=== PATIENT | female | born 1965 | race Two or more races ===

== ENCOUNTER 2016-10-06 21:55 | Observation (INO) | payer OTHER ==
[2016-10-06 22:12] VITALS: BMI 30.8
[2016-10-06] MEDS ORDERED: SODIUM CHLORIDE 1,000 ML IV STA (23:40)
[2016-10-06] MEDS ORDERED: ONDANSETRON 4 MG/2 ML VIAL IVPB ONE (23:40)
[2016-10-06] MEDS ORDERED: morphine CARPU-JECT 4 MG/1 ML DISP.SYRIN IVPUSH ONE (23:40)
[2016-10-06] MEDS ORDERED: ONDANSETRON 4 MG/2 ML VIAL ONE (23:58)
[2016-10-06] MEDS ORDERED: morphine CARPU-JECT 2 MG/1 ML DISP.SYRIN ONE (23:58)
[2016-10-07 00:22] LABS: BASOPHIL 0.9 % (0-2.0); EOSINOPHIL 1.6 % (0-4.5); MCHC 31.3 g/dl (32.0-36.0); MEAN CELL VOLUME 61.3 fl (80-96); MEAN PLT VOLUME 9.6 fl (7.5-11.1); NEUTROPHILS 69.3 % (42.8-82.8); PLATELET COUNT 282 K/MM3 (134-434); RDW 15.5 % (11.6-15.6); WHITE BLOOD COUNT 10.4 K/mm3 (4.0-10.0)
[2016-10-07 00:23] LABS: MCH 19.2 pg (25.7-33.7)
--- NOTE | 2016-10-07 00:37 | PDOC ---
History of Present Illness - General History Source: Patient Exam Limitations: No Limitations - History of Present Illness Initial Comments: 10/07/16 00:45 The patient is a 51 year old female with significant past medical history of hypertension, hyperlipidemia, asthma, and small bowel obstruction who presents to the ED with worsening epigastric, RLQ, and LLQ pain today. Patient reports having abdominal pain for the past few weeks that worsened today. Her pain is intermittent with associated nausea, but denies vomiting and diarrhea. Patient denies any sick contacts and recent travels. The patient denies fever, chills, cough, SOB, chest pain, and palpitations. Allergies: penicillins Social History: No alcohol, tobacco, or drug use reported. Past Surgical History: PCP: Dr. Opal Griffin GI: Dr. Eliseo Mendieta <Gabrielle Hernandes - Last Filed: 10/07/16 05:16> <Mich White - Last Filed: 10/07/16 05:36> - General Chief Complaint: Pain Stated Complaint: ABD PAIN/ NAUSEA Time Seen by Provider: 10/06/16 22:41 Past History <Gabrielle Hernandes - Last Filed: 10/07/16 05:16> - Past Medical History Asthma: Yes HTN: Yes Hypercholesterolemia: Yes Psychiatric Problems: Yes (ANXIETY.) - Surgical History Abdominal Surgery: Yes - Psycho/Social/Smoking Cessation Hx Anxiety: Yes Suicidal Ideation: No Smoking Status: No Smoking History: Never smoked Number of Cigarettes Smoked Daily: 0 Information on smoking cessation initiated: No Hx Alcohol Use: No Drug/Substance Use Hx: No Substance Use Type: None Hx Substance Use Treatment: No <Mich White - Last Filed: 10/07/16 05:36> - Past Medical History Allergies/Adverse Reactions: Allergies Allergy/AdvReac Type Severity Reaction Status Date / Time Penicillins Allergy Intermediate Swelling Verified 10/06/16 22:08 Home Medications: Ambulatory Orders Albuterol Sulfate [Proair Respiclick] 90 mcg IH PRN PRN 06/24/16 Amlodipine Besylate [Norvasc -] 2.5 mg PO DAILY 06/24/16 Budesonide/Formeterol Fumarate [SYMBICORT 160/4.5mcg -] 1 inh PO DAILY 06/24/16 Omeprazole 20 mg PO DAILY 10/06/16 Review of Systems - Review of Systems Able to Perform ROS?: Yes Comments:: 10/07/16 00:45 +epigastric pain, RLQ and LLQ pain, nausea Absent: fever, chills, diaphoresis, cough, SOB, chest pain, vomiting, and diarrhea <GretaGabrielle - Last Filed: 10/07/16 05:16> *Physical Exam - Vital Signs Last Vital Signs Temp Pulse Resp BP Pulse Ox 98.3 F 83 14 151/98 98 10/06/16 22:09 10/06/16 22:09 10/06/16 22:09 10/06/16 22:09 10/06/16 22:09 - Physical Exam Comments: 10/07/16 00:45 GENERAL: Well-appearing, well-nourished. No apparent distress. HEENT: Normocephalic, atraumatic. PERRL, EOM intact. CARDIOVASCULAR: Normal S1, S2. Regular rate and rhythm. PULMONARY: Clear to auscultation bilaterally. ABDOMEN: Soft, non-distended, tenderness to palpation in epigastric, RLQ, and LLQ region. No rebound and guarding. EXTREMITIES: Normal ROM in all four extremities. No gross deformities. SKIN: Warm, dry. No rash NEUROLOGICAL: No focal neurological deficits. <Gabrielle Hernandes - Last Filed: 10/07/16 05:16> - Vital Signs Last Vital Signs Temp Pulse Resp BP Pulse Ox 98.3 F 83 14 151/98 98 10/06/16 22:09 10/06/16 22:09 10/06/16 22:09 10/06/16 22:09 10/06/16 22:09 <Mich White - Last Filed: 10/07/16 05:36> Heart Score/ECG Review - ECG Impressions Comment:: 10/07/16 05:16 NSR @83bpm Moderate voltage criteria for LVH, may be normal variant Nonspecific ST and T wave abnormality Abnormal ECG <Gabrielle Hernandes - Last Filed: 10/07/16 05:16> ED Treatment Course - LABORATORY CBC & Chemistry Diagram: 10/07/16 00:10 10/07/16 00:10 - ADDITIONAL ORDERS Additional order review: 10/07/16 00:10 RBC 6.04 H MCV 61.3 L MCHC 31.3 L RDW 15.5 MPV 9.6 Neutrophils % 69.3 D Lymphocytes % 23.9 D Monocytes % 4.3 Eosinophils % 1.6 Basophils % 0.9 - RADIOLOGY Radiograph Interpretation: 10/07/16 01:45 EXAM: CT ABDOMEN AND PELVIS WITHOUT CONTRAST Reviewed by Imaging executive consultant: No nephrolithiasis, ureterolithiasis or obstructive uropathy. No bladder calculi. Unremarkable pancreas and gallbladder. Calcified granulomas liver. No bowel obstruction, colitis, free fluid or free air. Normal appendix. - Medications Given in the ED: ED Medications Discontinued Medications Generic Name Dose Route Start Last Admin Trade Name Freq PRN Reason Stop Dose Admin Sodium Chloride 1,000 mls @ 1,000 mls/hr 10/06/16 23:40 10/07/16 00:35 Normal Saline - IV 10/07/16 00:39 1,000 mls/hr ASDIR STA Administration Morphine Sulfate 4 mg 10/06/16 23:40 10/06/16 23:45 Morphine Injection - IVPUSH 10/06/16 23:41 4 mg ONCE ONE Administration Ondansetron HCl 4 mg 10/06/16 23:40 10/06/16 23:45 Zofran Injection IVPB 10/06/16 23:41 4 mg ONCE ONE Administration <Gabrielle Hernandes - Last Filed: 10/07/16 05:16> - LABORATORY CBC & Chemistry Diagram: 10/07/16 00:10 10/07/16 00:10 - ADDITIONAL ORDERS Additional order review: 10/07/16 00:10 RBC 6.04 H MCV 61.3 L MCHC 31.3 L RDW 15.5 MPV 9.6 Neutrophils % 69.3 D Lymphocytes % 23.9 D Monocytes % 4.3 Eosinophils % 1.6 Basophils % 0.9 - RADIOLOGY Radiology Studies Ordered: Category Date Time Status ABDOMEN & PELVIS CT W/O CONTR [CT] Stat CT Scan 10/07/16 00:00 Ordered - Medications Given in the ED: ED Medications Discontinued Medications Generic Name Dose Route Start Last Admin Trade Name Freq PRN Reason Stop Dose Admin Morphine Sulfate 4 mg 10/06/16 23:40 10/06/16 23:45 Morphine Injection - IVPUSH 10/06/16 23:41 4 mg ONCE ONE Administration Ondansetron HCl 4 mg 10/06/16 23:40 10/06/16 23:45 Zofran Injection IVPB 10/06/16 23:41 4 mg ONCE ONE Administration <Mich White - Last Filed: 10/07/16 05:36> *DC/Admit/Observation/Transfer - Attestations Scribe Attestion: 10/07/16 00:46 Documentation prepared by Gabrielle Hernandes, acting as medical coding auditor for Mich White MD <Gabrielle Hernandes - Last Filed: 10/07/16 05:16> - Discharge Dispostion Admit: Yes <Mich White - Last Filed: 10/07/16 05:36> Diagnosis at time of Disposition: Abdominal pain Qualifiers: Abdominal location: unspecified location Qualified Code(s): R10.9 - Unspecified abdominal pain - Discharge Dispostion Condition at time of disposition: Stable - Referrals Referrals: Opal Griffin MD [Primary Care Provider] -
[2016-10-07 01:11] LABS: ALBUMIN 4.2 g/dl (3.4-5.0); ALK PHOS 126 U/L (45-117); ANION GAP 5 (8-16); BILIRUBIN,TOTAL 0.5 mg/dL (0.2-1.0); CALCIUM 9.2 mg/dL (8.5-10.1); CO2 30 mmol/L (21-32); CREATININE 0.8 mg/dL (0.55-1.02); GLUCOSE,RANDOM 102 mg/dL (74-106); SGOT/AST 15 U/L (15-37); SGPT/ALT 23 U/L (12-78)
[2016-10-07] MEDS ORDERED: KETOROLAC TROMETHAMINE 30 MG/1 ML VIAL IVPUSH ONE (02:37)
[2016-10-07 02:56] LABS: PLATELET ESTIMATE ADEQUATE (NORMAL)
[2016-10-07 02:57] LABS: ANISOCYTOSIS 2+; HYPOCHROMIA 1+; MICROCYTOSIS 2+; OVALOCYTES 1+; POLYCHROMASIA 2+; TARGET CELLS FEW
[2016-10-07] MEDS ORDERED: KETOROLAC TROMETHAMINE 30 MG/1 ML VIAL ONE (03:03)
[2016-10-07] MEDS ORDERED: ONDANSETRON 4 MG/2 ML VIAL ONE ×3 (04:41→13:34)
[2016-10-07] MEDS ORDERED: ONDANSETRON 4 MG/2 ML VIAL IVPUSH ONE (04:45)
[2016-10-07] MEDS ORDERED: ONDANSETRON 4 MG/2 ML VIAL IVPB ONE (05:13)
[2016-10-07] MEDS ORDERED: morphine CARPU-JECT 4 MG/1 ML DISP.SYRIN IVPUSH ONE (05:13)
[2016-10-07] MEDS ORDERED: SODIUM CHLORIDE 1,000 ML IV STA (05:29)
--- NOTE | 2016-10-07 05:33 | PN ---
Teaching Attending Note Name of Resident: Mary Jo Gonzalez ATTENDING PHYSICIAN STATEMENT I saw and evaluated the patient. I reviewed the resident's note and discussed the case with the resident. I agree with the resident's findings and plan as documented. SUBJECTIVE: OBJECTIVE: ASSESSMENT AND PLAN:
--- NOTE | 2016-10-07 05:37 | HP ---
CHIEF COMPLAINT: Epigastric Pain and Vomiting PCP: Dr. Opal Griffin HISTORY OF PRESENT ILLNESS: This is a 51 year old woman with a past medical history of Hypertension, Hyperlipidemia, Asthma, Small Bowel Obstruction (02/2015). Who presents to the emergency department with epigastric pain radiating to RLQ, LLQ, nausea, and vomiting x 4weeks. Patient is Portuguese speaking [employer] line used #[id number], Patient reports the pain as throbbing, worse now and when drinking cold liquids. Patient reports seeing her GI, 2 weeks ago and was placed on Omeprazole - she reports some relief with med. Patient reports last BM x 1 day, brown and soft. Patient reports a 30lb unintentional weight loss in the last 12 months. Patient denies fever, chills, cough, CP, diarrhea, constipation, dysuria. Patient denies any sick contacts or recent travel. LMP 2 years ago ER course was notable for: (1) CTAP- no bowel obstruction, no free air (2) WBC 10.4 (3) Alk Phos- 126 Recent Travel: None PAST MEDICAL HISTORY: See HPI PAST SURGICAL HISTORY: Caesarean section Social History: Smoking: Never Alcohol: None Drugs: None lives with children- employed Family History: Mother: Asthma, HTN Sister: Gastritis Allergies Penicillins Allergy (Intermediate, Verified 10/06/16 22:08) Swelling HOME MEDICATIONS: Medication Instructions Recorded Albuterol Sulfate [Proair 90 mcg IH PRN PRN 06/24/16 Respiclick] Amlodipine Besylate [Norvasc -] 2.5 mg PO DAILY 06/24/16 Budesonide/Formeterol Fumarate 1 inh PO DAILY 06/24/16 [SYMBICORT 160/4.5mcg -] Omeprazole 20 mg PO DAILY 10/06/16 REVIEW OF SYSTEMS CONSTITUTIONAL: generalized weakness, loss of appetite Absent: fever, chills, diaphoresis, malaise, weight change HEENT: Absent: rhinorrhea, nasal congestion, throat pain, throat swelling, difficulty swallowing, mouth swelling, ear pain, eye pain, visual changes CARDIOVASCULAR: Absent: chest pain, syncope, palpitations, irregular heart rate, lightheadedness , peripheral edema RESPIRATORY: Absent: cough, shortness of breath, dyspnea with exertion, orthopnea, wheezing, stridor, hemoptysis GASTROINTESTINAL: abdominal pain, nausea, vomiting Absent: abdominal distension, diarrhea, constipation, melena, hematochezia GENITOURINARY: Absent: dysuria, frequency, urgency, hesitancy, hematuria, flank pain, genital pain MUSCULOSKELETAL: Absent: myalgia, arthralgia, joint swelling, back pain, neck pain SKIN: Absent: rash, itching, pallor HEMATOLOGIC/IMMUNOLOGIC: Absent: easy bleeding, easy bruising, lymphadenopathy, frequent infections ENDOCRINE: Absent: unexplained weight gain, unexplained weight loss, heat intolerance, cold intolerance NEUROLOGIC: Absent: headache, focal weakness or paresthesias, dizziness, unsteady gait, seizure, mental status changes, bladder or bowel incontinence PSYCHIATRIC: Absent: anxiety, depression, suicidal or homicidal ideation, hallucinations. PHYSICAL EXAMINATION Vital Signs - 24 hr 10/06/16 22:09 Temperature 98.3 F Pulse Rate 83 Respiratory 14 Rate Blood Pressure 151/98 O2 Sat by Pulse 98 Oximetry (%) GENERAL: Awake, alert, and fully oriented, in no acute distress. HEAD: Normal with no signs of trauma. EYES: Pupils equal, round and reactive to light, extraocular movements intact, sclera anicteric, conjunctiva clear. No lid lag. EARS, NOSE, THROAT: Ears normal, nares patent, oropharynx clear without exudates. Moist mucous membranes. NECK: Normal range of motion, supple without lymphadenopathy, JVD, or masses. LUNGS: Breath sounds equal, clear to auscultation bilaterally. No wheezes, and no crackles. No accessory muscle use. HEART: Regular rate and rhythm, normal S1 and S2 without murmur, rub or gallop. ABDOMEN: Soft, obese, +striae, not distended, tender to Epigastrium, RLQ, LLQ, hypoactive bowel sounds, +guarding. No rebound, no masses. No hepatomegaly or splenomegaly. MUSCULOSKELETAL: Normal range of motion at all joints. No bony deformities or tenderness. No CVA tenderness. UPPER EXTREMITIES: 2+ pulses, warm, well-perfused. No cyanosis. No clubbing. Cap refill <2 seconds. No peripheral edema. LOWER EXTREMITIES: 2+ pulses, warm, well-perfused. No calf tenderness. No peripheral edema. NEUROLOGICAL: Cranial nerves II-XII intact. Normal speech. Gait not observed. PSYCHIATRIC: Cooperative. Good eye contact. Appropriate mood and affect. SKIN: Warm, dry, normal turgor, no rashes or lesions noted. Laboratory Results - last 24 hr 10/07/16 10/07/16 00:10 00:10 WBC 10.4 H RBC 6.04 H Hgb 11.6 Hct 37.0 MCV 61.3 L MCHC 31.3 L RDW 15.5 Plt Count 282 MPV 9.6 Neutrophils % 69.3 D Lymphocytes % 23.9 D Monocytes % 4.3 Eosinophils % 1.6 Basophils % 0.9 Platelet Estimate Adequate Polychromasia 2+ Hypochromic-Microcytic 1+ Anisocytosis 2+ Microcytosis 2+ Macrocytosis 1+ Target Cells Few Ovalocytes 1+ Sodium 142 Potassium 4.4 Chloride 107 Carbon Dioxide 30 Anion Gap 5 L BUN 13 D Creatinine 0.8 Creat Clearance w eGFR > 60 Random Glucose 102 Calcium 9.2 Total Bilirubin 0.5 D AST 15 ALT 23 Alkaline Phosphatase 126 H Total Protein 7.0 Albumin 4.2 Lipase 90 Heart Score/ECG Review - ECG Impressions Comment:: 10/07/16 05:16 NSR @83bpm Moderate voltage criteria for LVH, may be normal variant Nonspecific ST and T wave abnormality Abnormal ECG - RADIOLOGY Radiograph Interpretation: 10/07/16 01:45 EXAM: CT ABDOMEN AND PELVIS WITHOUT CONTRAST Reviewed by Imaging production drilling machine operator: No nephrolithiasis, ureterolithiasis or obstructive uropathy. No bladder calculi. Unremarkable pancreas and gallbladder. Calcified granulomas liver. No bowel obstruction, colitis, free fluid or free air. Normal appendix. ASSESSMENT/PLAN: This is a 51 year old woman with a PMHx of: HTN, HLD, SBO. Presents to the ED with epigastric pain, nausea, vomiting x several weeks, worse today. Placed on Observation for Viral Gastroenteritis for further evaluation of their emergent condition. Plan: 1. GI: Abdominal Pain likely due to Viral Gastroenteritis vs GERD vs Pancreatitis vs Cholecystitis vs Malignancy - Slight increase in white count without L-shift, patient is afebrile - CTAP- see above - Will continue IVF - NPO - Zofran. Morphine prn - Pepcid IV - Add on amylase and lipase low suspicion for pancreatitis - Monitor CBC, BMP - UA-pending - Transvaginal US done 10/2015 showed- slightly heterogenous uterus with no evidence of right ovarian torsion or acute pathology - F/U with [facility] in outpatient 2. Card: HTN/HLD - Monitor BP - Continue home meds when patient can tolerate PO 3. Asthma - Controlled - Continue Symbicort 3. F/E/N - NS@75ml/hr - Replete lytes prn - NPO advance to clear ad opal 4. DVT Prophylaxis - OOB - SCDs - Consider AC if LOS > 48 hrs Code Status: Full Code Problem List - Problem (1) Abdominal pain Code(s): R10.9 - UNSPECIFIED ABDOMINAL PAIN Qualifiers: Abdominal location: unspecified location Qualified Code(s): R10.9 - Unspecified abdominal pain (2) Gastritis Code(s): K29.70 - GASTRITIS, UNSPECIFIED, WITHOUT BLEEDING (3) HTN (hypertension) Code(s): I10 - ESSENTIAL (PRIMARY) HYPERTENSION (4) Hypercholesteremia Code(s): E78.0 - PURE HYPERCHOLESTEROLEMIA * DO NOT USE * (5) Asthma Code(s): J45.909 - UNSPECIFIED ASTHMA, UNCOMPLICATED (6) Obesity Code(s): E66.9 - OBESITY, UNSPECIFIED (7) DVT prophylaxis Code(s): ZQP2526 - Visit type - Emergency Visit Emergency Visit: Yes ED Registration Date: 10/07/16 Care time: The patient presented to the Emergency Department on the above date and was hospitalized for further evaluation of their emergent condition. - New Patient This patient is new to me today: Yes Date on this admission: 10/07/16 - Critical Care Critical Care patient: No
[2016-10-07] MEDS ORDERED: ONDANSETRON 4 MG/2 ML VIAL IVPUSH PRN (05:44)
[2016-10-07] MEDS ORDERED: SODIUM CHLORIDE 1,000 ML IV SCH (05:45)
[2016-10-07] MEDS ORDERED: morphine CARPU-JECT 4 MG/1 ML DISP.SYRIN IVPUSH PRN (05:45)
[2016-10-07] MEDS ORDERED: morphine CARPU-JECT 4 MG/1 ML DISP.SYRIN ONE ×3 (06:30→13:51)
[2016-10-07 08:21] VITALS: TEMP 97.5
[2016-10-07 08:42] LABS: URINE APPEARANCE CLEAR; URINE BILIRUBIN NEGATIVE (NEGATIVE); URINE BLOOD NEGATIVE (NEGATIVE); URINE COLOR STRAW; URINE GLUCOSE (UA) NEGATIVE (NEGATIVE); URINE KETONE NEGATIVE (NEGATIVE); URINE NITRITE NEGATIVE (NEGATIVE); URINE PROTEIN NEGATIVE (NEGATIVE); URINE UROBILINOGEN NEGATIVE E.U./dl (0.2-1.0)
[2016-10-07 08:43] LABS: URINE LEUK ESTERASE TRACE (NEGATIVE)
[2016-10-07 08:45] LABS: URINE MUCUS RARE; URINE RBC <1 /hpf (0-3); URINE WBC 1 /hpf (3-5)
[2016-10-07] MEDS ORDERED: FAMOTIDINE 20 MG/50 ML IVPB 50 ML IVPB SCH (10:00)
--- NOTE | 2016-10-07 11:01 | EKG ---
Test Reason : Blood Pressure : / mmHG Vent. Rate : 080 BPM Atrial Rate : 080 BPM P-R Int : 136 ms QRS Dur : 068 ms QT Int : 386 ms P-R-T Axes : 042 -01 016 degrees QTc Int : 445 ms SINUS RHYTHM BASELINE ARTIFACT MODERATE VOLTAGE CRITERIA FOR LVH, MAY BE NORMAL VARIANT NONSPECIFIC ST AND T WAVE ABNORMALITY ABNORMAL ECG WHEN COMPARED WITH ECG OF 24-JUN-2016 16:40, BASELINE ARTIFACT Confirmed by ROBERT ESCOBEDO, USAMA ([id number]) on 10/07/2016 11:01:31 AM Referred By: Confirmed By:USAMA JONES MD
[2016-10-07 11:04] VITALS: BP 109/59; PULSE 71
[2016-10-07] MEDS ORDERED: PANTOPRAZOLE 40 MG TABLET (FP) PO SCH (13:45)
--- NOTE | 2016-10-07 13:47 | MSN ---
Progress Note (SOAP) - Subjective History of Present Illness: Carlos Coats is a 51 y/o female with a pmh of HTN, HLD, asthma, SBO s/p 1 year who presented with a 1 month hx of epigastric pain and a week of nausea. She had one episode of non bloody non billous vomiting as well. I saw the pt this morning and she complains of a throbbing heavy pain in the periumbilical region and in the left lower quadrant. She still has some mild nausea and is in mild distress. She uses an inhaler for her asthma every day but has had no recent SOB. She has stated that she has had palpitations recently but denies any chest pain, cough, f/c, hematochezia, melena, dysuria, hematuria, diarrhea, or constipation. Her last bm was yesterday 10/06. - Current Medications Current Medications: Active Medications Sodium Chloride (Normal Saline -) 1,000 mls @ 75 mls/hr IV ASDIR [facility] Last Admin: 10/07/16 07:05 Dose: 75 mls/hr Famotidine/Sodium Chloride (Pepcid 20 Mg Premixed Ivpb -) 50 mls @ 100 mls/hr IVPB BID [facility] Last Admin: 10/07/16 10:55 Dose: 100 mls/hr Morphine Sulfate (Morphine Injection -) 4 mg IVPUSH Q6H PRN PRN Reason: PAIN Ondansetron HCl (Zofran Injection) 4 mg IVPUSH Q6H PRN PRN Reason: NAUSEA AND/OR VOMITING Pantoprazole Sodium (Protonix -) 40 mg PO BID [facility] - Objective Vital Signs: Vital Signs Temperature 97.5 F L 10/07/16 06:00 Pulse Rate 71 10/07/16 10:55 Respiratory Rate 19 10/07/16 10:55 Blood Pressure 109/59 10/07/16 10:55 O2 Sat by Pulse Oximetry (%) 95 10/07/16 11:18 Constitutional: Yes: Mild Distress, Obese Eyes: Yes: WNL (sclera anicteric) HENT: Yes: WNL Cardiovascular: Yes: Regular Rate and Rhythm, S1, S2 Respiratory: Yes: Regular, CTA Bilaterally Gastrointestinal: Yes: Normal Bowel Sounds, Soft, Abdomen, Obese, Tenderness, Epigastrium (with some tenderness in LLQ as well. Positive guarding. no rebound. neg murphys sign), Vomiting (nbnb) Genitourinary: Yes: WNL (no cva tenderness, no suprapubic tenderness) Musculoskeletal: Yes: Back Pain (slight msk lower back pain. chronic in morning) Peripheral Pulses WNL: Yes Neurological: Yes: Alert, Oriented, Cran Nerves II-XII Intact Labs Lab Results: Laboratory Last Values WBC 10.4 K/mm3 (4.0-10.0) H 10/07/16 00:10 RBC 6.04 M/mm3 (3.60-5.2) H 10/07/16 00:10 Hgb 11.6 GM/dL (10.7-15.3) 10/07/16 00:10 Hct 37.0 % (32.4-45.2) 10/07/16 00:10 MCV 61.3 fl (80-96) L 10/07/16 00:10 MCHC 31.3 g/dl (32.0-36.0) L 10/07/16 00:10 RDW 15.5 % (11.6-15.6) 10/07/16 00:10 Plt Count 282 K/MM3 (134-434) 10/07/16 00:10 MPV 9.6 fl (7.5-11.1) 10/07/16 00:10 Neutrophils % 69.3 % (42.8-82.8) D 10/07/16 00:10 Lymphocytes % 23.9 % (8-40) D 10/07/16 00:10 Monocytes % 4.3 % (3.8-10.2) 10/07/16 00:10 Eosinophils % 1.6 % (0-4.5) 10/07/16 00:10 Basophils % 0.9 % (0-2.0) 10/07/16 00:10 Platelet Estimate Adequate (NORMAL) 10/07/16 00:10 Polychromasia 2+ 10/07/16 00:10 Hypochromic-Microcytic 1+ 10/07/16 00:10 Anisocytosis 2+ 10/07/16 00:10 Microcytosis 2+ 10/07/16 00:10 Macrocytosis 1+ 10/07/16 00:10 Target Cells Few 10/07/16 00:10 Ovalocytes 1+ 10/07/16 00:10 Sodium 142 mmol/L (136-145) 10/07/16 00:10 Potassium 4.4 mmol/L (3.5-5.1) 10/07/16 00:10 Chloride 107 mmol/L (98-107) 10/07/16 00:10 Carbon Dioxide 30 mmol/L (21-32) 10/07/16 00:10 Anion Gap 5 (8-16) L 10/07/16 00:10 BUN 13 mg/dL (7-18) D 10/07/16 00:10 Creatinine 0.8 mg/dL (0.55-1.02) 10/07/16 00:10 Creat Clearance w eGFR > 60 (>60) 10/07/16 00:10 Random Glucose 102 mg/dL (74-106) 10/07/16 00:10 Calcium 9.2 mg/dL (8.5-10.1) 10/07/16 00:10 Total Bilirubin 0.5 mg/dL (0.2-1.0) D 10/07/16 00:10 AST 15 U/L (15-37) 10/07/16 00:10 ALT 23 U/L (12-78) 10/07/16 00:10 Alkaline Phosphatase 126 U/L (45-117) H 10/07/16 00:10 Total Protein 7.0 g/dl (6.4-8.2) 10/07/16 00:10 Albumin 4.2 g/dl (3.4-5.0) 10/07/16 00:10 Total Amylase 38 U/L (25-115) 10/07/16 08:00 Lipase 129 U/L (73-393) 10/07/16 08:00 Urine Color Straw 10/07/16 08:27 Urine Appearance Clear 10/07/16 08:27 Urine pH 7.0 (5.0-8.0) 10/07/16 08:27 Ur Specific [place] 1.010 (1.001-1.035) 10/07/16 08:27 Urine Protein Negative (NEGATIVE) 10/07/16 08:27 Urine Glucose (UA) Negative (NEGATIVE) 10/07/16 08:27 Urine Ketones Negative (NEGATIVE) 10/07/16 08:27 Urine Blood Negative (NEGATIVE) 10/07/16 08:27 Urine Nitrite Negative (NEGATIVE) 10/07/16 08:27 Urine Bilirubin Negative (NEGATIVE) 10/07/16 08: Urine Urobilinogen Negative E.U./dl (0.2-1.0) 10/07/16 08: Ur Leukocyte Esterase Trace (NEGATIVE) H 10/07/16 08:27 Urine RBC <1 /hpf (0-3) 10/07/16 08: Urine WBC 1 /hpf (3-5) 10/07/16 08: Ur Epithelial Cells Rare /hpf (FEW) 10/07/16 08: Urine Mucus Rare 10/07/16 08:27 Imaging - Results Cat Scan: Report Reviewed, Image Reviewed (no acute pathology, no evidence of sbo, colitis, diverticulitis) Assessment/Plan Abdominal pain -viral gastroenteritis vs GERD vs pancreatitis -Slightly elevated white count with ab pain for 1 month, amylase and lipase not elevated make pancreas unlikely -NPO with light iv hydration at 75cc/hr -Was taking omeprazole 20-make it 20 BID -Zofran prn nausea -morphine prn pain -Will need to see dr platt o/p HTN -restart on norvasc 25 Asthma -Continue symbicort daily
--- NOTE | 2016-10-07 15:54 | HOSP ---
Subjective - Review of Symptoms Subjective: c/o nausea and dry heaves. no appetite. denies Cp, SOB,fever, chills Abdomen soft NT/ND obese A/P 1. Viral gastroenteritis vs GERD- CT abdomen reviewed with no acute pathology. will increase PPI to BID dosing. will monitor over next 24H for improvement. will likely benefit from EGD as inpatient vs outpatient pending if clinically improves. will consider Gi consult. IVF, pain and nausea control Physical Examination Vital Signs: Vital Signs Temperature 97.5 F L 10/07/16 06:00 Pulse Rate 71 10/07/16 10:55 Respiratory Rate 19 10/07/16 10:55 Blood Pressure 109/59 10/07/16 10:55 O2 Sat by Pulse Oximetry (%) 95 10/07/16 11:18
--- NOTE | 2016-10-07 16:00 | PN ---
Physical Exam: SUBJECTIVE: Patient seen and examined PAtient resting in bed, in mild distress. afebrile and hemodynamically stable. complains of mild epigastric pain that has gotten a littel better since admission, comlains of persistent nausea and anorexia. no further vomiting. No BM today. Denies chest pain, h/a, sob, palpitations, diarrhea or dysuria. OBJECTIVE: Vital Signs Period Temp Pulse Resp BP Sys/Hill Pulse Ox Last 24 Hr 71 19 109/59 95-95 GENERAL: The patient is awake, alert, and fully oriented, in mild distress HEAD: Normal with no signs of trauma. EYES: PERRL, extraocular movements intact, sclera anicteric, conjunctiva clear. ENT: moist mucous membranes. NECK: supple. LUNGS: Breath sounds equal, clear to auscultation bilaterally HEART: Regular rate and rhythm, S1, S2 ABDOMEN: Soft, moderately tender in epigastric region, nondistended, normoactive bowel sounds, voluntary guarding, no rebound EXTREMITIES: 2+ pulses, warm, well-perfused, no edema. NEUROLOGICAL: Cranial nerves II through XII grossly intact. Normal speech, gait not observed. PSYCH: Normal mood, normal affect. SKIN: Warm, dry Laboratory Results - last 24 hr 10/07/16 10/07/16 10/07/16 08:00 08:00 08:27 Total Amylase 38 Lipase 129 Urine Color Straw Urine Appearance Clear Urine pH 7.0 Ur Specific [place] 1.010 Urine Protein Negative Urine Glucose (UA) Negative Urine Ketones Negative Urine Blood Negative Urine Nitrite Negative Urine Bilirubin Negative Urine Urobilinogen Negative Ur Leukocyte Esterase Trace H Urine RBC <1 Urine WBC 1 Ur Epithelial Cells Rare Urine Mucus Rare Active Medications Generic Name Dose Route Start Last Admin Trade Name Freq PRN Reason Stop Dose Admin Sodium Chloride 1,000 mls @ 75 mls/hr 10/07/16 05:45 10/07/16 07:05 Normal Saline - IV 75 mls/hr ASDIR ANTOINETTE Administration Famotidine/Sodium Chloride 50 mls @ 100 mls/hr 10/07/16 10:00 10/07/16 10:55 Pepcid 20 Mg Premixed Ivpb - IVPB 100 mls/hr BID ANTOINETTE Administration Morphine Sulfate 4 mg 10/07/16 05:45 10/07/16 14:22 Morphine Injection - IVPUSH 4 mg Q6H PRN Administration PAIN Ondansetron HCl 4 mg 10/07/16 05:44 10/07/16 13:23 Zofran Injection IVPUSH 4 mg Q6H PRN Administration NAUSEA AND/OR VOMITING Pantoprazole Sodium 40 mg 10/07/16 13:45 Protonix - PO BID ANTOINETTE ASSESSMENT/PLAN: This is a 51 year old woman with a PMHx of: HTN, HLD, SBO. Presents to the ED with epigastric pain, nausea, vomiting x several weeks, worse today. Abdominal Pain likely GERD -hx GERD, alleviated by PPI -Pancreatitis r/o negative amylase, lipase -Cholecystitis r/o negative CT abd (shows only retained stool in colon) -HX SBO 1 yr ago -+ BM today, nonmelenous, nonbloody -Slight leukocytosis 10.4 -IVF -Zofran, Morphine prn -PPI 40 BID -NPO -advance diet when nausea resolves -f/u with GI outpatient, will likely need upper endoscopy HTN -normotensive -continue home meds when tolerates PO HLD -continue home meds when tolerates PO Asthma -No acute symptoms -Continue Symbicort FEN NS@75ml/hr lytes stable NPO GI DVT PPX: PPI BID, scd's Dispo: Obs in med [facility] Problem List - Problems (1) Abdominal pain Code(s): R10.9 - UNSPECIFIED ABDOMINAL PAIN Qualifiers: Abdominal location: unspecified location Qualified Code(s): R10.9 - Unspecified abdominal pain (2) Asthma Code(s): J45.909 - UNSPECIFIED ASTHMA, UNCOMPLICATED (3) Gastritis Code(s): K29.70 - GASTRITIS, UNSPECIFIED, WITHOUT BLEEDING (4) HTN (hypertension) Code(s): I10 - ESSENTIAL (PRIMARY) HYPERTENSION (5) Hypercholesteremia Code(s): E78.0 - PURE HYPERCHOLESTEROLEMIA * DO NOT USE * (6) Lightheadedness Code(s): R42 - DIZZINESS AND GIDDINESS (7) Obesity Code(s): E66.9 - OBESITY, UNSPECIFIED Visit type - Emergency Visit Emergency Visit: Yes ED Registration Date: 10/07/16 Care time: The patient presented to the Emergency Department on the above date and was hospitalized for further evaluation of their emergent condition. - New Patient This patient is new to me today: Yes Date on this admission: 10/07/16 - Critical Care Critical Care patient: No - Discharge Referral Referred to [facility] Med P.C.: No
--- NOTE | 2016-10-07 17:55 | HOSP ---
Subjective - Review of Symptoms Subjective: Notified by Rn that pt is requesting to go home. states her pain and nausea has resolved. requesting to eat Agrees to follow up with GI in 2 weeks D/c home Physical Examination Vital Signs: Vital Signs Temperature 97.5 F L 10/07/16 06:00 Pulse Rate 71 10/07/16 10:55 Respiratory Rate 19 10/07/16 10:55 Blood Pressure 109/59 10/07/16 10:55 O2 Sat by Pulse Oximetry (%) 95 10/07/16 11:18
--- NOTE | 2016-10-08 07:41 | DS ---
Physical Exam: SUBJECTIVE: Patient seen and examined Patient resting in bed NAD. afebrile and hemodynamically stable. no acute events. Patient requesting to go home. states her pain and nausea has resolved. requesting to eat Agrees to follow up with GI in 2 weeks OBJECTIVE: Vital Signs Period Temp Pulse Resp BP Sys/Hill Pulse Ox Last 24 Hr 71 19 109/59 95-95 PHYSICAL EXAM GENERAL: The patient is awake, alert, and fully oriented, in no acute distress. HEAD: Normal with no signs of trauma. EYES: PERRL, extraocular movements intact, sclera anicteric, conjunctiva clear. ENT: moist mucous membranes. NECK: supple. LUNGS: Breath sounds equal, clear to auscultation bilaterally HEART: Regular rate and rhythm, S1, S2 ABDOMEN: Soft, nontender, nondistended, normoactive bowel sounds, no guarding, EXTREMITIES: 2+ pulses, warm, well-perfused, no edema. NEUROLOGICAL: Cranial nerves II through XII grossly intact. Normal speech, gait not observed. PSYCH: Normal mood, normal affect. SKIN: Warm, dry LABS Laboratory Results - last 24 hr 10/07/16 10/07/16 10/07/16 08:00 08:00 08:27 Total Amylase 38 Lipase 129 Urine Color Straw Urine Appearance Clear Urine pH 7.0 Ur Specific [place] 1.010 Urine Protein Negative Urine Glucose (UA) Negative Urine Ketones Negative Urine Blood Negative Urine Nitrite Negative Urine Bilirubin Negative Urine Urobilinogen Negative Ur Leukocyte Esterase Trace H Urine RBC <1 Urine WBC 1 Ur Epithelial Cells Rare Urine Mucus Rare HOSPITAL COURSE: Date of Admission:10/07/16 This is a 51 year old woman with a past medical history of Hypertension, Hyperlipidemia, Asthma, Small Bowel Obstruction (02/2015). Who presents to the emergency department with epigastric pain radiating to RLQ, LLQ, nausea, and vomiting x 4weeks. Patient is Vietnamese speaking [employer] used #[id number], Patient reports the pain as throbbing, worse now and when drinking cold liquids. Patient reports seeing her GI, 2 weeks ago and was placed on Omeprazole - she reports some relief with med. Patient reports last BM x 1 day, brown and soft. Patient reports a 30lb unintentional weight loss in the last 12 months. Patient denies fever, chills, cough, CP, diarrhea, constipation, dysuria. Patient denies any sick contacts or recent travel. LMP 2 years ago. In ED she was afebrile and hemodynamically stable with unremarkable labs. Her CT abd shows only retained stool in colon. She was placed in obs with Abdominal Pain likely due to GERD. Pancreatitis r/o negative amylase, lipase. Cholecystitis r/ o negative CT abd. She was treated with IVF, Zofran, Morphine prn, PPI 40 BID and kept NPO. Her nausea and abd pain resolved and she requested to go home with GI f/u outpatient as she will likely need upper endoscopy Date of Discharge: 10/08/16 Minutes to complete discharge: 30 (na) Discharge Summary Reason For Visit: ABD PAIN Current Active Problems Abdominal pain (Acute) DVT prophylaxis (Acute) Condition: Improved - Instructions Diet, Activity, Other Instructions: Slowly advance diet as tolerated. Avoid fried, fatty foods. Avoid spicy foods and chocolate. Do not lay down after eating. Follow up with GI doctor in 2 weeks. You may require further testing if your symptoms persist Follow up with your primary care doctor in 1 week Return to the ER if your symptoms worsen Referrals: Opal Griffin MD [Primary Care Provider] - Eliseo Mendieta MD [Staff Physician] - Disposition: HOME - Home Medications Comprehensive Discharge Medication List: Ambulatory Orders Albuterol Sulfate [Proair Respiclick] 90 mcg IH PRN PRN 06/24/16 Amlodipine Besylate [Norvasc -] 2.5 mg PO DAILY 06/24/16 Budesonide/Formeterol Fumarate [SYMBICORT 160/4.5mcg -] 1 inh PO DAILY 06/24/16 Omeprazole 20 mg PO DAILY 10/06/16 Ondansetron [Ondansetron Odt] 8 mg PO Q8H PRN #10 tab.rapdis 10/07/16 Problem List - Problems (1) Abdominal pain Code(s): R10.9 - UNSPECIFIED ABDOMINAL PAIN Qualifiers: Abdominal location: unspecified location Qualified Code(s): R10.9 - Unspecified abdominal pain (2) Asthma Code(s): J45.909 - UNSPECIFIED ASTHMA, UNCOMPLICATED (3) Gastritis Code(s): K29.70 - GASTRITIS, UNSPECIFIED, WITHOUT BLEEDING (4) HTN (hypertension) Code(s): I10 - ESSENTIAL (PRIMARY) HYPERTENSION (5) Hypercholesteremia Code(s): E78.0 - PURE HYPERCHOLESTEROLEMIA * DO NOT USE * (6) Lightheadedness Code(s): R42 - DIZZINESS AND GIDDINESS (7) Obesity Code(s): E66.9 - OBESITY, UNSPECIFIED This patient is new to me today: No Emergency Visit: Yes ED Registration Date: 10/07/16 Care time: The patient presented to the Emergency Department on the above date and was hospitalized for further evaluation of their emergent condition. Critical Care patient: No - Discharge Referral Referred to [facility] Med P.C.: No
== END 2016-10-07 18:50 | disposition home or self-care (01) ==
LOC: JER 21:55 → JERBED 10-07 06:52
PROVIDERS: ADMIT Internal Medicine; ATTEND Internal Medicine
DX: K21.9 Gastro-esophageal reflux disease without esophagitis (principal); I10 Essential (primary) hypertension; E78.5 Hyperlipidemia, unspecified; J45.909 Unspecified asthma, uncomplicated; Z88.0 Allergy status to penicillin; E66.9 Obesity, unspecified; Z68.30 Body mass index [BMI] 30.0-30.9, adult
CPT/HCPCS: 36415; 74176-TC; 80053; 81003; 81015; 82150; 83690; 85025; 93005; 93010; 99284-25; G0378

== ENCOUNTER 2016-12-12 08:00 | Day surgery (SDC) | payer OTHER ==
[2016-12-11 11:25] VITALS: BMI 28.9
[2016-12-12] MEDS ORDERED: TAMSULOSIN HCL 0.4 MG CAP.ER.24H (FP) PO ONE (10:10)
[2016-12-12] MEDS ORDERED: ACETAMINOPHEN 325 MG TABLET (FP) PO PRN (10:10)
--- NOTE | 2016-12-12 11:04 | HP ---
DATE OF ADMISSION: 12/12/2016 HISTORY OF PRESENT ILLNESS: Patient is a 51-year-old female with history of intermittent gross hematuria and persistent microscopic hematuria treated with antibiotics, did not resolve the hematuria. The patient denies any trauma. She denies any previous episodes. She does have history of high blood pressure. She is allergic to penicillin. The patient is G3, P3, postmenopausal. She is presently on a proton pump inhibitor and Norvasc. PHYSICAL EXAM: General: Physical exam revealed a well-developed adult female. Abdomen: Her abdomen is soft. There were no masses. No hepatosplenomegaly was noted. There was some tenderness in the right flank. The bladder was soft and not distended. Pelvic exam: Grade 1 cystorectocele, Keshawn negative. No discharge or masses were palpated. Extremities: Full range of motion with no cyanosis, clubbing or edema. LABS: The urinalysis revealed a moderate amount of blood in the urine, negative for nitrites, negative for leukocytes. Her BUN and creatinine were 13/0.7. A CAT scan of the abdomen and pelvis was within normal limits. The patient's hemoglobin and hematocrit showed an anemia with a hemoglobin of 11 and a hematocrit of 35. Her platelets were 271. Her white count was 3.5. Her PT and INR were 10.6/0.96. IMPRESSION AT PRESENT: Persistent hematuria with 2 episodes of gross total painless hematuria. PLAN: Will recommend a cystourethroscopy, bilateral retrograde pyelograms, bilateral ureteroscopies with brush biopsies of the right and left renal pelvis. This was explained in detail to the patient, and she agrees. Henry [id number]
[2016-12-12] MEDS ORDERED: MIDAZOLAM HCL 2 MG/2 ML SINGLE DOSE VIAL ONE (11:18)
[2016-12-12] MEDS ORDERED: PROPOFOL 20 ML ONE (11:18)
[2016-12-12] MEDS ORDERED: LEVOFLOXACIN 500 MG IVPB 100 ML IVPB ONE (11:47)
[2016-12-12] MEDS ORDERED: LEVOFLOXACIN 500 MG PREMIX BAG IVPB ONE (11:49)
[2016-12-12] MEDS ORDERED: ONDANSETRON 4 MG/2 ML VIAL IVPUSH PRN (11:56)
[2016-12-12] MEDS ORDERED: oxyCODONE HCL 5 MG TABLET PO PRN (11:56)
[2016-12-12] MEDS ORDERED: KETOROLAC TROMETHAMINE 30 MG/1 ML VIAL ONE (12:16)
--- NOTE | 2016-12-12 12:53 | OP ---
Operative Note - Note: Pre-Operative Diagnosis: gross hematuria. positive fish test Operation: cystoscopy , ureteroscopy. b/l retrograde with brush cytology with b /l jj stent placement. biopsy of l renal pelvis. ureteral dilation Findings: l renal pelvic mass Post-Operative Diagnosis: Same as Pre-op Surgeon: German Gamino Anesthesia: General Specimens Removed: biopsy taken and brush cytology Drains & Tubes with Location: agosto in place Operative Report Dictated: Yes
[2016-12-12] MEDS ORDERED: ONDANSETRON 4 MG/2 ML VIAL ONE (15:14)
[2016-12-12 15:31] VITALS: TEMP 97.4
[2016-12-12 19:02] VITALS: BP 104/68; PULSE 69
--- NOTE | 2016-12-12 19:15 | OP ---
DATE OF OPERATION: 12/12/2016 PREOPERATIVE DIAGNOSIS: Intermittent gross hematuria, persistent microscopic hematuria, cellular atypia. OPERATIVE PROCEDURE: Cystourethroscopy, collection of urinary bladder, bilateral retrograde pyelograms, bilateral ureteroscopies, bilateral washings for exfoliative cytology, left renal pelvic biopsy with fulguration for hemostasis and placement of bilateral JJ stents. ANESTHESIA: Stents. DESCRIPTION OF PROCEDURE: Under above stated anesthesia, the patient is prepped and draped in the usual sterile manner. She is placed in the dorsal lithotomy position. External genitalia revealed a grade 2 cystocele. There was atrophy of the vaginal vestibule. There also appeared to be meateal stenosis. The meatus was calibrated to 14-[place]. This was dilated to 24-[place] with straight Erasto sounds without difficulty or bleeding. Cystoscopy was then performed under direct vision. Bladder neck appeared to be hyperemic and hypertrophies. Bladder was entered. Urine was collected for cytology. Inspection of the bladder revealed a squamous metaplasia of the trigone. Ureteral orifices were within normal limits with efflux of clear urine bilaterally. Dome and lateral albarran revealed a fine grade 1 trabeculation. There was a generalized hyperemia. No overt lesions or calculi were seen. A Flexi-Tip catheter was placed in the right ureteral orifice, and 10 mL of contrast was injected. This revealed a slightly dilated right renal pelvis. No filling defects were noted. Drainage films were adequate. Therefore, a guidewire was passed up the right renal unit. Ureteroscopy was performed. The ureter appeared to be normal. The renal pelvis appeared to be injected and hyperemic. Then 5 mL of normal saline was injected and then aspirated for exfoliative cytology. The ureteroscope was removed, and a 22-cm 6-[place] Citizen JJ stent was left in place. A left retrograde pyelogram also revealed a normal left renal unit. A Glidewire was passed up the left renal unit. Ureteroscopy was performed in the usual fashion. There appeared to be inflammation and hyperemic plaque over the papilla of the upper gina of the left kidney. Using a biopsy forceps, the area was biopsied. The area was then for fulguration. No active bleeding was noted. No overt lesions or calculi was seen. The ureteroscope was then removed. A 22-cm 6-[place] JJ stent was left in place. X-rays confirmed good position of both stents. The bladder was emptied. The scope was removed. The 16-[place] Citizen Rogers was inserted. This was connected to a drainage bag. The patient tolerated the procedure well. She returned to the recovery room in good condition. BRODY GONZALEZ M.D. [id number]
--- NOTE | 2016-12-16 13:21 | PATH ---
Cytology Non-Gynecological Report Patient Name: JYOTI MARTIN [facility]. Rec. #: [id number] /Age/Gender: 1965 (Age: 51) / F Account: [id number] Location: [facility] SURGICAL Taken: 12/12/2016 Received: 12/12/2016 Reported: 12/16/2016 Physicians: German Gamnio M.D. Specimen(s) Received URINE FOR CYTOLOGY Clinical History Gross hematuria Final Diagnosis URINE FOR CYTOLOGY: SATISFACTORY FOR EVALUATION. SCATTERED CLUSTERS OF UROTHELIAL CELLS PRESENT (SEE COMMENT). REACTIVE SQUAMOUS CELLS. SCATTERED INFLAMMATORY CELLS. RED BLOOD CELLS. Comment: Clusters of urothelial cells may result from inflammation, stones, and low-grade urothelial carcinoma. Also refer to [id number] and [id number]. Electronically Signed Carlos Kaufman M.D. Gross Description Received is 20 cc of yellow fluid fresh. One cytofunnel slide and one cell block are made.
--- NOTE | 2016-12-16 13:23 | PATH ---
Cytology Non-Gynecological Report Patient Name: JYOTI MARTIN [facility]. Rec. #: [id number] /Age/Gender: 1965 (Age: 51) / F Account: [id number] Location: [facility] SURGICAL Taken: 12/12/2016 Received: 12/12/2016 Reported: 12/16/2016 Physicians: German Gamino M.D. Specimen(s) Received A: RIGHT RENAL PELVIC WASHINGS B: LEFT RENAL PELVIC WASHINGS Clinical History Gross hematuria Final Diagnosis A. PELVIC WASHINGS, RIGHT KIDNEY: SATISFACTORY FOR EVALUATION. NO MALIGNANT CELLS IDENTIFIED. RARE REACTIVE UROTHELIAL CELLS. CRYSTALS PRESENT. B. PELVIC WASHINGS, LEFT KIDNEY: SATISFACTORY FOR EVALUATION. CLUSTERS OF MILDLY ATYPICAL UROTHELIAL CELLS PRESENT (SEE COMMENT). FEW INFLAMMATORY CELLS. CRYSTALS PRESENT. RED BLOOD CELLS. Comment: Clusters of urothelial cells may result from inflammation, stone and low grade urothelial carcinoma. The cells in the clusters show mild cytological atypia. Clinical correlations and follow up are suggested. Also refer to [id number] for the corresponding left renal pelvis biopsy result and to [id number] for the corresponding urine cytology result. Electronically Signed Carlos Kaufman M.D. Gross Description A. Received is 10 cc of clear fluid fresh. One cytofunnel slide is made. B. Received is 20 cc of pink colored fluid fresh. One cytofunnel slide is made.
== END 2016-12-12 19:30 | disposition home or self-care (01) ==
LOC: JASU-SURG 08:00
PROVIDERS: ATTEND Urology
PROC: 0T518ZZ Destruction of Left Kidney, Via Natural or Artificial Opening Endoscopic (ICD-10-PCS; 2016-12-12)
PROC: 0T788DZ Dilation of Bilateral Ureters with Intraluminal Device, Via Natural or Artificial Opening Endoscopic (ICD-10-PCS; 2016-12-12)
PROC: BT14YZZ Fluoroscopy of Kidneys, Ureters and Bladder using Other Contrast (ICD-10-PCS; principal; 2016-12-12 10:00)
DX: R31.0 Gross hematuria (principal)
CPT/HCPCS: 76000-TC; 88108; 88305-TC; 94760

== ENCOUNTER 2017-03-07 12:02 | Emergency (ER) | payer OTHER ==
[2017-03-07 12:17] VITALS: BMI 30.4
[2017-03-07 13:05] LABS: URINE APPEARANCE CLEAR; URINE BILIRUBIN NEGATIVE (NEGATIVE); URINE COLOR LTYELLOW; URINE GLUCOSE (UA) NEGATIVE (NEGATIVE); URINE KETONE NEGATIVE (NEGATIVE); URINE LEUK ESTERASE NEGATIVE (NEGATIVE); URINE NITRITE NEGATIVE (NEGATIVE); URINE PROTEIN NEGATIVE (NEGATIVE); URINE UROBILINOGEN NEGATIVE E.U./dl (0.2-1.0)
[2017-03-07 13:06] LABS: URINE BLOOD 3+ (NEGATIVE)
[2017-03-07 13:07] LABS: URINE BACTERIA RARE /hpf (NONE SEEN); URINE RBC 10 /hpf (0-3); URINE WBC 1 /hpf (3-5)
[2017-03-07] MEDS ORDERED: morphine CARPU-JECT 4 MG/1 ML DISP.SYRIN IVPUSH ONE (13:20)
[2017-03-07] MEDS ORDERED: SODIUM CHLORIDE 1,000 ML IV STA (13:20)
[2017-03-07] MEDS ORDERED: morphine CARPU-JECT 4 MG/1 ML DISP.SYRIN ONE (13:39)
[2017-03-07 13:44] LABS: BASOPHIL 1.3 % (0-2.0); EOSINOPHIL 2.7 % (0-4.5); MCHC 31.5 g/dl (32.0-36.0); MEAN CELL VOLUME 62.3 fl (80-96); MEAN PLT VOLUME 9.6 fl (7.5-11.1); NEUTROPHILS 61.6 % (42.8-82.8); PLATELET COUNT 281 K/MM3 (134-434); RDW 15.6 % (11.6-15.6); WHITE BLOOD COUNT 5.7 K/mm3 (4.0-10.0)
[2017-03-07 13:45] LABS: MCH 19.6 pg (25.7-33.7)
--- NOTE | 2017-03-07 14:02 | PDOC ---
History of Present Illness - General History Source: Patient Exam Limitations: No Limitations - History of Present Illness Initial Comments: 03/07/17 14:39 The patient is a 51 year old female with past medical history of asthma, HTN, hyperlipidemia, anxiety, and kidney stones, who presents to the ED with right- sided flank pain and right lower quadrant tenderness that began yesterday. Pt experienced similar symptoms back in December 2016 and had kidney stone vaginal stents placed. Pt no longer has the stents. Pt saw Dr. German Gamino 5 days ago regarding her symptoms and she was prescribed Bactrim and Percocet. Pts symptoms worsened and she reports to the ED today for further evaluation. Upon examination, patient states that she noted discoloration of her urine but denies any dysuria. The patient reports chills. The patient denies any fever, nausea, or vomiting. <Yahaira Manriquez - Last Filed: 03/07/17 14:38> - General History Source: Patient Exam Limitations: No Limitations <Victor M Ferrell - Last Filed: 03/08/17 07:19> - General Chief Complaint: Pain Stated Complaint: URINARY PROBLEM Time Seen by Provider: 03/07/17 12:42 Past History <Yahaira Manriquez - Last Filed: 03/07/17 14:38> - Past Medical History Asthma: Yes Diabetes: No Disorders: (HEMATURIA & FLANK PAIN) HTN: Yes Hypercholesterolemia: Yes Psychiatric Problems: Yes (ANXIETY.) - Surgical History Abdominal Surgery: Yes - Psycho/Social/Smoking Cessation Hx Anxiety: No Suicidal Ideation: No Smoking Status: No Smoking History: Never smoked Have you smoked in the past 12 months: No Number of Cigarettes Smoked Daily: 0 Information on smoking cessation initiated: No Hx Alcohol Use: No Drug/Substance Use Hx: No Substance Use Type: None Hx Substance Use Treatment: No <Victor M Ferrell - Last Filed: 03/08/17 07:19> - Past Medical History Allergies/Adverse Reactions: Allergies Allergy/AdvReac Type Severity Reaction Status Date / Time Penicillins Allergy Intermediate Swelling Verified 03/07/17 21:14 Home Medications: Ambulatory Orders Albuterol Sulfate [Proair Respiclick] 90 mcg IH PRN PRN 06/24/16 Amlodipine Besylate [Norvasc -] 2.5 mg PO DAILY 06/24/16 Budesonide/Formeterol Fumarate [SYMBICORT 160/4.5mcg -] 1 inh PO BID 06/24/16 Lorazepam 0.5 mg PO DAILY 12/11/16 Ciprofloxacin [Cipro -] 500 mg PO Q12H #20 tablet 03/07/17 Naproxen [Naprosyn -] 500 mg PO BID PRN #20 tablet 03/07/17 Review of Systems - Review of Systems Able to Perform ROS?: Yes Comments:: 03/07/17 14:39 GENERAL/CONSTITUTIONAL: No fever. No weakness. +chills HEAD, EYES, EARS, NOSE AND THROAT: No change in vision. No ear pain or discharge. No sore throat. CARDIOVASCULAR: No chest pain or shortness of breath. RESPIRATORY: No cough, wheezing, or hemoptysis. SKIN: No rash GASTROINTESTINAL: No nausea, vomiting, diarrhea or constipation. GENITOURINARY: No dysuria, frequency, or change in urination. +urine discoloration MUSCULOSKELETAL: No joint or muscle swelling or pain. No neck or back pain. NEUROLOGIC: No headache, vertigo, loss of consciousness, or change in strength/ sensation. ENDOCRINE: No increased thirst. No abnormal weight change. +right flank pain HEMATOLOGIC/LYMPHATIC: No anemia, easy bleeding, or history of blood clots. ALLERGIC/IMMUNOLOGIC: No hives or skin allergy. <Yahaira Manriquez - Last Filed: 03/07/17 14:38> *Physical Exam - Vital Signs Last Vital Signs Temp Pulse Resp BP Pulse Ox 98.5 F 66 18 115/81 98 03/07/17 12:14 03/07/17 14:04 03/07/17 14:04 03/07/17 14:04 03/07/17 14:04 - Physical Exam Comments: 03/07/17 14:42 GENERAL: Awake, alert, and fully oriented. +uncomfortable appearing. HEAD: No signs of trauma ENT: Auricles normal inspection, hearing grossly normal, nares patent, oropharynx clear EYES: PERRLA, EOMI, sclera anicteric, conjunctiva clear without exudates. Moist mucosa. NECK: Normal ROM, supple, no lymphadenopathy, JVD, or masses LUNGS: Breath sounds equal, clear to auscultation bilaterally. No wheezes, and no crackles HEART: Regular rate and rhythm, normal S1 and S2, no murmurs, rubs or gallops ABDOMEN: Soft, normoactive bowel sounds. No guarding, no rebound. No masses. + right lower quandrant tenderness to palpation MSK: +right cva tenderness, EXTREMITIES: Normal range of motion, no edema. No clubbing or cyanosis. No cords, erythema, or tenderness NEUROLOGICAL: Cranial nerves II through XII grossly intact. Normal speech, normal gait SKIN: Warm, Dry, normal turgor, no rashes or lesions noted <Yahaira Manriquez - Last Filed: 03/07/17 14:38> - Vital Signs Last Vital Signs Temp Pulse Resp BP Pulse Ox 98.5 F 74 18 118/74 100 03/07/17 12:14 03/07/17 12:14 03/07/17 12:14 03/07/17 12:14 03/07/17 12:14 <Victor M Ferrell - Last Filed: 03/08/17 07:19> ED Treatment Course - LABORATORY CBC & Chemistry Diagram: 03/07/17 13:34 03/07/17 13:34 - ADDITIONAL ORDERS Additional order review: Laboratory Results 03/07/17 03/07/17 13:34 13:00 Sodium 139 Potassium 5.3 H D Chloride 104 Carbon Dioxide 26 Anion Gap 9 BUN 10 Creatinine 0.9 D Creat Clearance w eGFR > 60 Random Glucose 80 Calcium 9.1 Total Bilirubin 0.6 AST 43 H D ALT 33 D Alkaline Phosphatase 116 Total Protein 7.3 Albumin 4.1 Lipase 115 Urine Color Ltyellow Urine Appearance Clear Urine pH 6.0 Urine Protein Negative Urine Glucose (UA) Negative Urine Ketones Negative Urine Blood 3+ H Urine Nitrite Negative Urine Bilirubin Negative Urine Urobilinogen Negative Ur Leukocyte Esterase Negative Urine RBC 10 Urine WBC 1 Ur Epithelial Cells Rare Urine Bacteria Rare 03/07/17 13:34 RBC 5.72 H MCV 62.3 L MCHC 31.5 L RDW 15.6 MPV 9.6 Neutrophils % 61.6 Lymphocytes % 27.5 Monocytes % 6.9 Eosinophils % 2.7 Basophils % 1.3 - Medications Given in the ED: ED Medications Discontinued Medications Generic Name Dose Route Start Last Admin Trade Name Freq PRN Reason Stop Dose Admin Sodium Chloride 1,000 mls @ 1,000 mls/hr 03/07/17 13:20 03/07/17 13:44 Normal Saline - IV 03/07/17 14:19 1,000 mls/hr ASDIR STA Administration Morphine Sulfate 4 mg 03/07/17 13:20 03/07/17 13:45 Morphine Injection - IVPUSH 03/07/17 13:21 4 mg ONCE ONE Administration <Yahaira Manriquez - Last Filed: 03/07/17 14:38> - LABORATORY CBC & Chemistry Diagram: 03/07/17 13:34 03/07/17 13:34 - ADDITIONAL ORDERS Additional order review: Laboratory Results 03/07/17 13:00 Urine Color Ltyellow Urine Appearance Clear Urine pH 6.0 Urine Protein Negative Urine Glucose (UA) Negative Urine Ketones Negative Urine Blood 3+ H Urine Nitrite Negative Urine Bilirubin Negative Urine Urobilinogen Negative Ur Leukocyte Esterase Negative Urine RBC 10 Urine WBC 1 Ur Epithelial Cells Rare Urine Bacteria Rare 03/07/17 13:34 RBC 5.72 H MCV 62.3 L MCHC 31.5 L RDW 15.6 MPV 9.6 Neutrophils % 61.6 Lymphocytes % 27.5 Monocytes % 6.9 Eosinophils % 2.7 Basophils % 1.3 - RADIOLOGY Radiology Studies Ordered: Category Date Time Status SPIRAL- RENAL-STONE CT [CT] Stat CT Scan 03/07/17 13:20 Ordered - Medications Given in the ED: ED Medications Discontinued Medications Generic Name Dose Route Start Last Admin Trade Name Vida PRN Reason Stop Dose Admin Morphine Sulfate 4 mg 03/07/17 13:20 03/07/17 13:45 Morphine Injection - IVPUSH 03/07/17 13:21 4 mg ONCE ONE Administration <Victor M Ferrell - Last Filed: 03/08/17 07:19> Medical Decision Making - Medical Decision Making 03/07/17 13:58 A portion of this note was documented by scribe services under my direction. I have reviewed the details of the note, within reason, and agree with the documentation with the following case summary and management plan written by me. Patient treated in the ED. Nursing notes are reviewed and incorporated into the medical decision-making. Vital signs reviewed. Peripheral IV access obtained by the nurse, laboratory studies are drawn and sent, reviewed and interpreted by myself. Vital Signs Temp Pulse Resp BP Pulse Ox 98.5 F 74 18 118/74 100 03/07/17 12:14 03/07/17 12:14 03/07/17 12:14 03/07/17 12:14 03/07/17 12:14 51-year-old female with past medical history of hypertension, kidney stones presents with right flank pain when the right lower quadrant since yesterday. In December 2016, the patient has had some similar findings were it was a kidney stone ureteral stents placed and subsequently removed. Stated that 5 days ago, she had some her symptoms saw urologist Dr. German Gamino and the patient was prescribed Bactrim and Percocet. However the symptoms worsen. She denies fevers but is expressing chills. And eyes nausea or vomiting. Does report discoloration of urine but denies dysuria. Differential includes renal colic versus pyelonephritis. Versus less likely appendicitis. Labs, CAT scan, urinalysis, pain control reassess. 03/07/17 15:56 CBC, BMP 03/07/17 13:34 03/07/17 13:34 CMP Sodium 139 mmol/L (136-145) 03/07/17 13:34 Potassium 5.3 mmol/L (3.5-5.1) H D 03/07/17 13:34 Chloride 104 mmol/L (98-107) 03/07/17 13:34 Carbon Dioxide 26 mmol/L (21-32) 03/07/17 13:34 Anion Gap 9 (8-16) 03/07/17 13:34 BUN 10 mg/dL (7-18) 03/07/17 13:34 Creatinine 0.9 mg/dL (0.55-1.02) D 03/07/17 13:34 Creat Clearance w eGFR > 60 (>60) 03/07/17 13:34 Random Glucose 80 mg/dL (74-106) 03/07/17 13:34 Calcium 9.1 mg/dL (8.5-10.1) 03/07/17 13:34 Total Bilirubin 0.6 mg/dL (0.2-1.0) 03/07/17 13:34 AST 43 U/L (15-37) H D 03/07/17 13:34 ALT 33 U/L (12-78) D 03/07/17 13:34 Alkaline Phosphatase 116 U/L (45-117) 03/07/17 13:34 Total Protein 7.3 g/dl (6.4-8.2) 03/07/17 13:34 Albumin 4.1 g/dl (3.4-5.0) 03/07/17 13:34 Lipase 115 U/L (73-393) 03/07/17 13:34 Urine Test Results Urine Color Ltyellow 03/07/17 13:00 Urine Appearance Clear 03/07/17 13:00 Urine pH 6.0 (5.0-8.0) 03/07/17 13:00 Urine Protein Negative (NEGATIVE) 03/07/17 13:00 Urine Glucose (UA) Negative (NEGATIVE) 03/07/17 13:00 Urine Ketones Negative (NEGATIVE) 03/07/17 13:00 Urine Blood 3+ (NEGATIVE) H 03/07/17 13:00 Urine Nitrite Negative (NEGATIVE) 03/07/17 13:00 Urine Bilirubin Negative (NEGATIVE) 03/07/17 13:00 Ur Leukocyte Esterase Negative (NEGATIVE) 03/07/17 13:00 Urine RBC 10 /hpf (0-3) 03/07/17 13:00 Urine WBC 1 /hpf (3-5) 03/07/17 13:00 Ur Epithelial Cells Rare /hpf (FEW) 03/07/17 13:00 Urine Bacteria Rare /hpf (NONE SEEN) 03/07/17 13:00 CAT scan reviewed and demonstrates no acute findings. It is potential that the patient may been treated for pyelonephritis or [facility] and given that she was on Bactrim the urine results does not show acute findings. However given that the patient is been on 5 days with the Bactrim and symptoms are not improved, we will exchange at the biotic to ciprofloxacin and have the patient take medication for next 10 days. Patient has a follow-up with her urologist. Return precautions given. Patient's pain is improved significant. Patient go home with friend. I discussed the physical exam findings, ancillary test results and final diagnoses with the patient. I answered all of the patient's questions. The patient was satisfied with the care received and felt comfortable with the discharge plan and treatment plan. The patient will call their primary care physician within 24 hours to arrange follow-up and will return to the Emergency Department with any new, persistant or worsening symptoms. <Victor M Ferrell - Last Filed: 03/08/17 07:19> *DC/Admit/Observation/Transfer - Attestations Scribe Attestion: 03/07/17 14:45 Documentation prepared by Yahaira Manriquez, acting as regional medical director for Victor M Ferrell MD. <Yahaira Manriquez - Last Filed: 03/07/17 14:38> - Discharge Dispostion Admit: No <Victor M Ferrell - Last Filed: 03/08/17 07:19> Diagnosis at time of Disposition: Abdominal pain Qualifiers: Abdominal location: right lower quadrant Qualified Code(s): R10.31 - Right lower quadrant pain - Discharge Dispostion Disposition: HOME Condition at time of disposition: Improved - Prescriptions Prescriptions: Ciprofloxacin [Cipro -] 500 mg PO Q12H #20 tablet Naproxen [Naprosyn -] 500 mg PO BID PRN #20 tablet PRN Reason: Pain - Referrals Referrals: Varghese Gamino MD [Staff Physician] - - Patient Instructions Printed Discharge Instructions: DI for Abdominal Pain-Adult Additional Instructions: Please take the ciprofloxacin 500 mg every 12 hours and next 10 days. For pain control, take 500 mg of naproxen every 12 hours needed. Please drink plenty fluids and rest. Follow-up with your urologist. If you develop excruciating abdominal pain, please return to the ED for further evaluation. Print Language: UZBEK
[2017-03-07 14:08] LABS: ALBUMIN 4.1 g/dl (3.4-5.0); ANION GAP 9 (8-16); CALCIUM 9.1 mg/dL (8.5-10.1); CO2 26 mmol/L (21-32); CREATININE 0.9 mg/dL (0.55-1.02); GLUCOSE,RANDOM 80 mg/dL (74-106); SGPT/ALT 33 U/L (12-78)
[2017-03-07 14:10] LABS: ALK PHOS 116 U/L (45-117); BILIRUBIN,TOTAL 0.6 mg/dL (0.2-1.0); TOT PROT 7.3 g/dl (6.4-8.2)
[2017-03-07 14:13] LABS: SGOT/AST 43 U/L (15-37)
[2017-03-07 14:15] LABS: PLATELET ESTIMATE ADEQUATE (NORMAL)
[2017-03-07 14:16] LABS: ANISOCYTOSIS 1+; HYPOCHROMIA 2+; MICROCYTOSIS 1+
[2017-03-07] MEDS ORDERED: LEVOFLOXACIN 500 MG TABLET (FP) PO ONE (15:49)
[2017-03-07] MEDS ORDERED: LEVOFLOXACIN 500 MG TABLET (FP) ONE (16:04)
[2017-03-07 16:11] VITALS: BP 123/77; PULSE 72; TEMP 98.3
== END 2017-03-07 16:11 | disposition home or self-care (01) ==
LOC: JER 12:02
PROC: 3E033NZ Introduction of Analgesics, Hypnotics, Sedatives into Peripheral Vein, Percutaneous Approach (ICD-10-PCS; principal; 2017-03-07)
DX: R10.31 Right lower quadrant pain (principal); I10 Essential (primary) hypertension; E78.5 Hyperlipidemia, unspecified; F41.9 Anxiety disorder, unspecified; J45.909 Unspecified asthma, uncomplicated; Z87.442 Personal history of urinary calculi
CPT/HCPCS: 36415; 74176; 80053; 81003; 81015; 83690; 85025; 87086; 96374; 99283-25

== ENCOUNTER 2017-03-07 21:12 | Emergency (ER) | payer OTHER ==
[2017-03-07 21:19] VITALS: BP 145/102; PULSE 102; TEMP 98.2; BMI 27.3
--- NOTE | 2017-03-07 21:45 | PDOC ---
History of Present Illness - History of Present Illness Initial Comments: 03/07/17 22:36 The patient is a 51-year-old female, with a significant past medical history of nephrolithiasis s/p lithotripsy (earlier this week) complicated by right flank/ abdominal complaints and started on Bactrim by Dr. Gonzalez, presents to the emergency department for revisit after being evaluated earlier today for persistent right-sided symptoms and receiving morphine in the ED and discharged home on Ciprofloxacin with plans to discontinue her Bactrim. The patient had an essentially normal CT scan earlier today. The patient presents now with whole body chills and nonbloody, nonbilious nausea/vomiting, tremors and feeling very anxious. She has no change in her abdominal complaints, but she does admit to a sharp headache. She denies chest pain, shortness of breath, and dizziness. She denies fever, diarrhea and constipation. She denies dysuria, frequency, urgency. Allergies: penicillins Urologist: Dr. German Gonzalez <Karely Carter - Last Filed: 03/07/17 22:46> <Oscar Love - Last Filed: 03/08/17 00:11> - General Chief Complaint: Pain Stated Complaint: ALLERGIC REACTION Time Seen by Provider: 03/07/17 21:36 Past History <Karely Carter - Last Filed: 03/07/17 22:46> - Past Medical History Asthma: Yes Diabetes: No Disorders: (HEMATURIA & FLANK PAIN) HTN: Yes Hypercholesterolemia: Yes Psychiatric Problems: Yes (ANXIETY.) - Surgical History Abdominal Surgery: Yes - Psycho/Social/Smoking Cessation Hx Anxiety: No Suicidal Ideation: No Smoking Status: No Smoking History: Never smoked Have you smoked in the past 12 months: No Number of Cigarettes Smoked Daily: 0 Information on smoking cessation initiated: No Hx Alcohol Use: No Drug/Substance Use Hx: No Substance Use Type: None Hx Substance Use Treatment: No <Oscar Love - Last Filed: 03/08/17 00:11> - Past Medical History Allergies/Adverse Reactions: Allergies Allergy/AdvReac Type Severity Reaction Status Date / Time Penicillins Allergy Intermediate Swelling Verified 03/07/17 21:14 Home Medications: Ambulatory Orders Albuterol Sulfate [Proair Respiclick] 90 mcg IH PRN PRN 06/24/16 Amlodipine Besylate [Norvasc -] 2.5 mg PO DAILY 06/24/16 Budesonide/Formeterol Fumarate [SYMBICORT 160/4.5mcg -] 1 inh PO BID 06/24/16 Lorazepam 0.5 mg PO DAILY 12/11/16 Ciprofloxacin [Cipro -] 500 mg PO Q12H #20 tablet 03/07/17 Naproxen [Naprosyn -] 500 mg PO BID PRN #20 tablet 03/07/17 Review of Systems - Review of Systems Constitutional: Yes: Chills. No: Fever Respiratory: No: Cough, Shortness of Breath Cardiac (ROS): Yes: Lightheadedness, Palpitations. No: Chest Pain ABD/GI: Yes: Nausea, Vomiting. No: Constipated, Diarrhea : No: Dysuria Neurological: Yes: Headache All Other Systems: Reviewed and Negative <Oscar Love - Last Filed: 03/08/17 00:11> *Physical Exam - Vital Signs Last Vital Signs Temp Pulse Resp BP Pulse Ox 98.2 F 102 H 18 145/102 100 03/07/17 21:15 03/07/17 21:15 03/07/17 21:15 03/07/17 21:15 03/07/17 21:15 - Physical Exam Comments: 03/07/17 22:45 GENERAL: (+) The patient is awake, alert, and fully oriented, Uncomfortable, trembling with chills but afebrile, actively retching HEAD: Normal with no signs of trauma. EYES: Pupils equal, round and reactive to light, extraocular movements intact, sclera anicteric, conjunctiva clear with no pallor. ENT: Ears normal, nares patent, oropharynx clear without exudates. Moist mucous membranes. NECK: Normal range of motion, supple without lymphadenopathy, JVD, or masses. LUNGS: Breath sounds equal, clear to auscultation bilaterally. No wheeze/ crackles. HEART: Regular rate and rhythm, normal S1 and S2 without murmur or rub. ABDOMEN: Soft/nontender/nondistended. BS wnl. No guarding or rebound. No palpable masses. No hepatosplenomegaly. EXTREMITIES: Normal range of motion, no edema. No clubbing or cyanosis. No cords, erythema, or tenderness. NEUROLOGICAL: Cranial nerves II through XII grossly intact. Normal speech, normal gait. PSYCH: Normal mood, normal affect. SKIN: Warm, Dry, normal turgor, no rashes or lesions noted. <Karely Carter - Last Filed: 03/07/17 22:46> - Vital Signs Last Vital Signs Temp Pulse Resp BP Pulse Ox 98.2 F 102 H 18 145/102 100 03/07/17 21:15 03/07/17 21:15 03/07/17 21:15 03/07/17 21:15 03/07/17 21:15 <Oscar Love - Last Filed: 03/08/17 00:11> Heart Score/ECG Review #1 ECG reviewed & interpreted by me at: 22:29 General ECG Interpretation: Sinus Rhythm, Normal Rate (79), Normal Intervals ( qtc 465), No acute ischemic changes (isolated q in III) <Oscar Love - Last Filed: 03/08/17 00:11> ED Treatment Course - LABORATORY CBC & Chemistry Diagram: 03/07/17 22:05 03/07/17 22:05 - ADDITIONAL ORDERS Additional order review: 03/07/17 22:05 RBC 5.67 H MCV 61.6 L MCHC 31.1 L RDW 15.3 MPV 9.2 Neutrophils % 76.3 D Lymphocytes % 17.1 D Monocytes % 5.1 Eosinophils % 0.5 D Basophils % 1.0 - Medications Given in the ED: ED Medications Discontinued Medications Generic Name Dose Route Start Last Admin Trade Name Joseq PRN Reason Stop Dose Admin Diphenhydramine HCl 25 mg 03/07/17 21:58 03/07/17 22:16 Benadryl Injection - IVPUSH 03/07/17 21:59 25 mg ONCE ONE Administration Metoclopramide HCl 10 mg 03/07/17 21:59 03/07/17 22:16 Reglan Injection - IVPB 03/07/17 22:00 10 mg ONCE ONE Administration <Karely Carter - Last Filed: 03/07/17 22:46> - LABORATORY CBC & Chemistry Diagram: 03/07/17 22:05 03/07/17 22:05 <Oscar Love - Last Filed: 03/08/17 00:11> Medical Decision Making - Medical Decision Making 03/07/17 22:24 A portion of this note was documented by scribe services under my direction. I have reviewed the details of the note, within reason, and agree with the documentation with the following case summary and management plan written by me. 51-year-old female with history of nephrolithiasis status post lithotripsy earlier this week complicated by right flank/abdominal complaints started on Bactrim by Dr. Gonzalez, seen here earlier today for persistent right-sided symptoms and was noted to be afebrile without leukocytosis, positive hematuria on urinalysis and essentially normal CAT scan. Because her symptoms were not getting better, she was given morphine in the emergency department and discharged home on Cipro with plans to stop Bactrim. The patient presents now with whole body chills and nonbloody nonbilious nausea/vomiting, tremors and feeling very anxious. She has no change in her abdominal complaints, but she does have a headache. Vital signs normal. Uncomfortable, trembling with chills but afebrile, actively retching Cardia pulmonary exam is nonfocal Right-sided abdominal discomfort without focal peritoneal findings 51-year-old female with apparent medication adverse reaction, question to morphine versus Cipro, but more likely opiate reaction. Less likely that this is an acute exacerbation of any intra-abdominal pathology or infection given the recently negative workup. Also with headache, possibly from vomiting, but will rule out bleed. Recheck labs and EKG CT head IV fluids, Reglan for nausea and headache, Benadryl for chills possibly secondary to opiates Reassess 03/07/17 22:33 Slightly improved after reglan/benadryl. chills and vomiting have resolved. En route to CT. 03/07/17 22:59 No leukocytosis, normal diff. K improved and now normal at 4.1, Cr 1.1. Trop negative, EKG normal. At CT, will reassess. Case discussed with Dr. Gonzalez, agrees that if no fever/leukocytosis, can discharge to continue abx and f/u in office first thing Thursday morning. Since UA and culture already sent today and already taking abx, limited utility to additional urine testing. 03/07/17 23:47 lying comfortably in stretcher, tremors/chills have resolved, no further vomiting. c/o post-emesis epigastric burning, will trial pepcid/maalox. will reassess after meds and proceed with planned d/c to f/u with Dr. Gonzalez Thursday. <Oscar Love - Last Filed: 03/08/17 00:11> *DC/Admit/Observation/Transfer - Attestations Scribe Attestion: 03/07/17 22:46 Documentation prepared by Karely Carter, acting as infertility medical assistant for Oscar Love MD, <Karely Carter - Last Filed: 03/07/17 22:46> <Oscar Love - Last Filed: 03/08/17 00:11> Diagnosis at time of Disposition: Abdominal pain Qualifiers: Abdominal location: right lower quadrant Qualified Code(s): R10.31 - Right lower quadrant pain Nausea and vomiting Qualifiers: Vomiting type: unspecified Vomiting Intractability: non-intractable Qualified Code(s): R11.2 - Nausea with vomiting, unspecified - Discharge Dispostion Condition at time of disposition: Improved - Referrals Referrals: German Gonzalez MD [Staff Physician] - - Patient Instructions Printed Discharge Instructions: DI for Adverse Drug Reaction -- GI Intolerance Additional Instructions: Activity as tolerated. Stay hydrated. Blood tests and a CT of the head showed no acute abnormalities. Your symptoms may have been due to an adverse reaction to medications. The stomach burning can be common after vomiting - take Pepcid 1-2 times per day , this is available over the counter. Continue your medications as previously prescribed by your physician. As previously instructed, take Cipro but STOP Bactrim. You should follow up with DR. GONZALEZ Thursday AT 9AM and your primary doctor as soon as possible regarding today's emergency department visit. Return to the emergency department for any new or concerning symptoms, particularly persistent pain or vomiting, fever, difficulty urinating.
[2017-03-07] MEDS ORDERED: SODIUM CHLORIDE 1,000 ML IV ONE (21:58)
[2017-03-07] MEDS ORDERED: METOCLOPRAMIDE HCL INJECTION 10 MG/2 ML VIAL IVPB ONE (21:59)
[2017-03-07] MEDS ORDERED: METOCLOPRAMIDE HCL INJECTION 10 MG/2 ML VIAL ONE (22:11)
[2017-03-07 22:14] LABS: EOSINOPHIL 0.5 % (0-4.5); MCHC 31.1 g/dl (32.0-36.0); MEAN CELL VOLUME 61.6 fl (80-96); MEAN PLT VOLUME 9.2 fl (7.5-11.1); NEUTROPHILS 76.3 % (42.8-82.8); PLATELET COUNT 274 K/MM3 (134-434); RDW 15.3 % (11.6-15.6); WHITE BLOOD COUNT 6.9 K/mm3 (4.0-10.0)
[2017-03-07 22:16] LABS: MCH 19.2 pg (25.7-33.7)
[2017-03-07 22:42] LABS: ALBUMIN 3.8 g/dl (3.4-5.0); ANION GAP 12 (8-16); CALCIUM 9.1 mg/dL (8.5-10.1); CO2 21 mmol/L (21-32); CREATININE 1.1 mg/dL (0.55-1.02); GLUCOSE,RANDOM 124 mg/dL (74-106); SGOT/AST 21 U/L (15-37); SGPT/ALT 29 U/L (12-78)
[2017-03-07 22:47] LABS: ALK PHOS 110 U/L (45-117); BILIRUBIN,TOTAL 0.5 mg/dL (0.2-1.0); TROPONIN I < 0.02 ng/ml (0.00-0.05)
[2017-03-07] MEDS ORDERED: MAG HYDROX/AL HYDROX/SIMETH 30 ML UNIT-DOSE CUP PO ONE (23:41)
[2017-03-07] MEDS ORDERED: FAMOTIDINE 20 MG/50 ML IVPB 50 ML IVPB ONE (23:41)
[2017-03-08] MEDS ORDERED: MAG HYDROX/AL HYDROX/SIMETH 30 ML UNIT-DOSE CUP ONE (00:18)
[2017-03-08] MEDS ORDERED: FAMOTIDINE 20 MG/50 ML IVPB 50 ML IVPB ONE (00:18)
--- NOTE | 2017-03-08 03:10 | PDOC ---
*Physical Exam - Vital Signs Last Vital Signs Temp Pulse Resp BP Pulse Ox 98.2 F 102 H 18 145/102 100 03/07/17 21:15 03/07/17 21:15 03/07/17 21:15 03/07/17 21:15 03/07/17 21:15 <Ariel Ch - Last Filed: 03/08/17 03:09> - Vital Signs Last Vital Signs Temp Pulse Resp BP Pulse Ox 98.2 F 102 H 18 145/102 100 03/07/17 21:15 03/07/17 21:15 03/07/17 21:15 03/07/17 21:15 03/07/17 21:15 <Micah Covington - Last Filed: 03/08/17 03:10> ED Treatment Course - LABORATORY CBC & Chemistry Diagram: 03/07/17 22:05 03/07/17 22:05 - ADDITIONAL ORDERS Additional order review: Laboratory Results 03/07/17 22:05 Sodium 137 Potassium 4.1 D Chloride 104 Carbon Dioxide 21 Anion Gap 12 BUN 9 Creatinine 1.1 H D Creat Clearance w eGFR 52.36 Random Glucose 124 H D Calcium 9.1 Total Bilirubin 0.5 AST 21 D ALT 29 Alkaline Phosphatase 110 Creatine Kinase 76 Troponin I < 0.02 Total Protein 7.0 Albumin 3.8 Lipase 77 03/07/17 22:05 RBC 5.67 H MCV 61.6 L MCHC 31.1 L RDW 15.3 MPV 9.2 Neutrophils % 76.3 D Lymphocytes % 17.1 D Monocytes % 5.1 Eosinophils % 0.5 D Basophils % 1.0 - Medications Given in the ED: ED Medications Discontinued Medications Generic Name Dose Route Start Last Admin Trade Name Freq PRN Reason Stop Dose Admin Al Hydroxide/Mg Hydroxide 30 ml 03/07/17 23:41 03/08/17 00:29 Mylanta Oral Suspension - PO 03/07/17 23:42 30 ml ONCE ONE Administration Diphenhydramine HCl 25 mg 03/07/17 21:58 03/07/17 22:16 Benadryl Injection - IVPUSH 03/07/17 21:59 25 mg ONCE ONE Administration Sodium Chloride 1,000 mls @ 1,000 mls/hr 03/07/17 21:58 03/07/17 22:16 Normal Saline - IV 03/07/17 22:57 1,000 mls/hr ONCE ONE Administration Famotidine/Sodium Chloride 50 mls @ 100 mls/hr 03/07/17 23:41 03/08/17 00:29 Pepcid 20 Mg Premixed Ivpb - IVPB 03/08/17 00:10 100 mls/hr ONCE ONE Administration Metoclopramide HCl 10 mg 03/07/17 21:59 03/07/17 22:16 Reglan Injection - IVPB 03/07/17 22:00 10 mg ONCE ONE Administration <Ariel Ch - Last Filed: 03/08/17 03:09> - LABORATORY CBC & Chemistry Diagram: 03/07/17 22:05 03/07/17 22:05 - ADDITIONAL ORDERS Additional order review: Laboratory Results 03/07/17 22:05 Sodium 137 Potassium 4.1 D Chloride 104 Carbon Dioxide 21 Anion Gap 12 BUN 9 Creatinine 1.1 H D Creat Clearance w eGFR 52.36 Random Glucose 124 H D Calcium 9.1 Total Bilirubin 0.5 AST 21 D ALT 29 Alkaline Phosphatase 110 Creatine Kinase 76 Troponin I < 0.02 Total Protein 7.0 Albumin 3.8 Lipase 77 03/07/17 22:05 RBC 5.67 H MCV 61.6 L MCHC 31.1 L RDW 15.3 MPV 9.2 Neutrophils % 76.3 D Lymphocytes % 17.1 D Monocytes % 5.1 Eosinophils % 0.5 D Basophils % 1.0 - Medications Given in the ED: ED Medications Discontinued Medications Generic Name Dose Route Start Last Admin Trade Name Freq PRN Reason Stop Dose Admin Al Hydroxide/Mg Hydroxide 30 ml 03/07/17 23:41 03/08/17 00:29 Mylanta Oral Suspension - PO 03/07/17 23:42 30 ml ONCE ONE Administration Diphenhydramine HCl 25 mg 03/07/17 21:58 03/07/17 22:16 Benadryl Injection - IVPUSH 03/07/17 21:59 25 mg ONCE ONE Administration Sodium Chloride 1,000 mls @ 1,000 mls/hr 03/07/17 21:58 03/07/17 22:16 Normal Saline - IV 03/07/17 22:57 1,000 mls/hr ONCE ONE Administration Famotidine/Sodium Chloride 50 mls @ 100 mls/hr 03/07/17 23:41 03/08/17 00:29 Pepcid 20 Mg Premixed Ivpb - IVPB 03/08/17 00:10 100 mls/hr ONCE ONE Administration Metoclopramide HCl 10 mg 03/07/17 21:59 03/07/17 22:16 Reglan Injection - IVPB 03/07/17 22:00 10 mg ONCE ONE Administration <Micah Covington - Last Filed: 03/08/17 03:10> Medical Decision Making - Medical Decision Making 03/08/17 03:10 Patient was turned over from Dr. Love. Patient comes into the ED with an adverse reaction to morphine. Patient had been in the ED for 5 hours, given medication, sleeping comfortable but does not have anyone to pick her up right now and is requesting to be discharged at 7am when her family is awake. <Micah Covington - Last Filed: 03/08/17 03:10> *DC/Admit/Observation/Transfer - Attestations Physician Attestion: 03/08/17 03:10 I, Dr. Ariel Ch, attest that this document has been prepared under my direction and personally reviewed by me in its entirety. I further attest, that it accurately reflects all work, treatment, procedures and medical decision -making performed by me. <Ariel Ch - Last Filed: 03/08/17 03:09> <Micah Covington - Last Filed: 03/08/17 03:10> Diagnosis at time of Disposition: Abdominal pain Qualifiers: Abdominal location: right lower quadrant Qualified Code(s): R10.31 - Right lower quadrant pain Nausea and vomiting Qualifiers: Vomiting type: unspecified Vomiting Intractability: non-intractable Qualified Code(s): R11.2 - Nausea with vomiting, unspecified - Discharge Dispostion Condition at time of disposition: Improved - Referrals Referrals: German Gonzalez MD [Staff Physician] - - Patient Instructions Printed Discharge Instructions: DI for Adverse Drug Reaction -- GI Intolerance Additional Instructions: Activity as tolerated. Stay hydrated. Blood tests and a CT of the head showed no acute abnormalities. Your symptoms may have been due to an adverse reaction to medications. The stomach burning can be common after vomiting - take Pepcid 1-2 times per day , this is available over the counter. Continue your medications as previously prescribed by your physician. As previously instructed, take Cipro but STOP Bactrim. You should follow up with DR. GONZALEZ THURSDAY MORNING AT 9AM and your primary doctor as soon as possible regarding today's emergency department visit. Return to the emergency department for any new or concerning symptoms, particularly persistent pain or vomiting, fever, difficulty urinating. - Post Discharge Activity
--- NOTE | 2017-03-08 21:01 | EKG ---
Test Reason : Blood Pressure : / mmHG Vent. Rate : 079 BPM Atrial Rate : 079 BPM P-R Int : 138 ms QRS Dur : 078 ms QT Int : 406 ms P-R-T Axes : 054 009 047 degrees QTc Int : 465 ms NORMAL SINUS RHYTHM NORMAL ECG WHEN COMPARED WITH ECG OF 07-OCT-2016 01:40, NONSPECIFIC T WAVE ABNORMALITY NO LONGER EVIDENT IN INFERIOR LEADS Confirmed by TITA SCOTT MD ([id number]) on 03/08/2017 9:00:54 PM Referred By: Confirmed By:TITA SCOTT MD
== END 2017-03-08 06:50 | disposition home or self-care (01) ==
LOC: JER 21:12
PROC: 3E0337Z Introduction of Electrolytic and Water Balance Substance into Peripheral Vein, Percutaneous Approach (ICD-10-PCS; principal; 2017-03-07)
PROC: 3E033GC Introduction of Other Therapeutic Substance into Peripheral Vein, Percutaneous Approach (ICD-10-PCS; 2017-03-07)
PROC: 3E033GC Introduction of Other Therapeutic Substance into Peripheral Vein, Percutaneous Approach (ICD-10-PCS; 2017-03-07)
PROC: 3E033GC Introduction of Other Therapeutic Substance into Peripheral Vein, Percutaneous Approach (ICD-10-PCS; 2017-03-07)
DX: R11.2 Nausea with vomiting, unspecified (principal); T50.995A Adverse effect of other drugs, medicaments and biological substances, initial encounter; Y92.038 Other place in apartment as the place of occurrence of the external cause; I10 Essential (primary) hypertension; J45.909 Unspecified asthma, uncomplicated; F41.9 Anxiety disorder, unspecified
CPT/HCPCS: 36415; 70450-TC; 80053; 82550; 83690; 84484; 85025; 93005; 93010; 96361; 96365; 96375; 99283-25

== ENCOUNTER 2017-05-28 15:21 | Observation (INO) | payer OTHER ==
[2017-05-28 15:38] VITALS: BMI 30.8
[2017-05-28] MEDS ORDERED: ASPIRIN 325 MG TABLET PO ONE (15:55)
--- NOTE | 2017-05-28 16:01 | PDOC ---
History of Present Illness - General History Source: Patient - History of Present Illness Presenting Symptoms: Chest Pain Timing/Duration: reports: intermittent Severity/Quality: reports: aching <Bryanna Charlton - Last Filed: 05/28/17 18:37> <Tricia Cosby - Last Filed: 05/28/17 23:12> - General Chief Complaint: Chest Pain Stated Complaint: CHEST PAIN Time Seen by Provider: 05/28/17 15:49 Past History - Past Medical History Asthma: Yes Diabetes: No Disorders: (HEMATURIA & FLANK PAIN) HTN: Yes Hypercholesterolemia: Yes Psychiatric Problems: Yes (ANXIETY.) - Surgical History Abdominal Surgery: Yes - Psycho/Social/Smoking Cessation Hx Anxiety: Yes Suicidal Ideation: No Smoking Status: No Smoking History: Never smoked Have you smoked in the past 12 months: No Number of Cigarettes Smoked Daily: 0 Information on smoking cessation initiated: No Hx Alcohol Use: No Drug/Substance Use Hx: No Substance Use Type: None Hx Substance Use Treatment: No <Bryanna Charlton - Last Filed: 05/28/17 18:37> <Tricia Cosby - Last Filed: 05/28/17 23:12> - Past Medical History Allergies/Adverse Reactions: Allergies Allergy/AdvReac Type Severity Reaction Status Date / Time Penicillins Allergy Intermediate Swelling Verified 03/07/17 21:14 Home Medications: Ambulatory Orders Amlodipine Besylate [Norvasc -] 2.5 mg PO DAILY 06/24/16 Lorazepam 0.5 mg PO DAILY 12/11/16 Omeprazole 40 mg PO DAILY 05/28/17 Review of Systems - Review of Systems Constitutional: No: Chills, Fever Respiratory: No: Shortness of Breath Cardiac (ROS): Yes: Chest Pain. No: Lightheadedness, Palpitations, Syncope ABD/GI: No: Nausea, Vomiting <Bryanna Charlton - Last Filed: 05/28/17 18:37> *Physical Exam - Physical Exam General Appearance: Yes: Appropriately Dressed HEENT: positive: Normal Voice Neck: positive: Supple Respiratory/Chest: positive: Lungs Clear, Normal Breath Sounds. negative: Respiratory Distress Cardiovascular: positive: Regular Rate, S1, S2 Gastrointestinal/Abdominal: positive: Soft. negative: Tender Integumentary: positive: Dry, Warm Neurologic: positive: Fully Oriented, Alert, Normal Mood/Affect <Bryanna Charlton - Last Filed: 05/28/17 18:37> <Tricia Cosby - Last Filed: 05/28/17 23:12> - Vital Signs Last Vital Signs Temp Pulse Resp BP Pulse Ox 98.2 F 64 17 106/64 98 05/28/17 19:43 05/28/17 19:43 05/28/17 19:43 05/28/17 19:43 05/28/17 19:43 - Physical Exam Comments: 05/28/17 16:00 Teary in ED (Bryanna Charlton) Heart Score/ECG Review - History History: Slightly suspicious - Electrocardiogram EKG: Normal - Age Age: 45-65 - Risk Factors Risk Factors Heart Score: Yes Hx Hypercholesterolemia Based on the list above the patient has:: 1-2 risk factors - Troponin Troponin: </= normal limit - Score Heart Score - Total: 2 <Bryanna Charlton - Last Filed: 05/28/17 18:37> <Tricia Cosby - Last Filed: 05/28/17 23:12> - ECG Intrepretation Comment:: 05/28/17 16:02 Twelve-lead EKG was performed and reviewed by me. There is normal sinus rhythm with a normal rate. The axis is normal. The intervals are normal. There are no ST or T wave abnormalities. Impression: Normal twelve-lead EKG 05/28/17 17:40 (Bryanna Charlton) ED Treatment Course - LABORATORY CBC & Chemistry Diagram: 05/28/17 16:40 05/28/17 16:40 <Bryanna Charlton - Last Filed: 05/28/17 18:37> - LABORATORY CBC & Chemistry Diagram: 05/28/17 16:40 05/28/17 16:40 <Tricia Cosby - Last Filed: 05/28/17 23:12> - ADDITIONAL ORDERS Additional order review: Laboratory Results 05/28/17 16:40 Sodium 139 Potassium 4.3 Chloride 105 Carbon Dioxide 28 Anion Gap 6 L BUN 8 Creatinine 0.7 Creat Clearance w eGFR > 60 Random Glucose 91 Calcium 8.9 Total Bilirubin 0.5 AST 17 ALT 21 D Alkaline Phosphatase 112 Creatine Kinase 81 Troponin I < 0.02 Total Protein 6.8 Albumin 3.8 05/28/17 16:40 RBC 5.35 H MCV 62.3 L MCHC 31.8 L RDW 14.9 MPV 9.3 Neutrophils % 72.1 Lymphocytes % 18.3 Monocytes % 7.5 Eosinophils % 1.4 D Basophils % 0.7 - Medications Given in the ED: ED Medications Discontinued Medications Generic Name Dose Route Start Last Admin Trade Name Vida PRN Reason Stop Dose Admin Aspirin 325 mg 05/28/17 15:55 05/28/17 16:21 Asa - PO 05/28/17 15:56 325 mg ONCE ONE Administration Medical Decision Making <Bryanna Charlton - Last Filed: 05/28/17 18:37> <Tricia Cosby - Last Filed: 05/28/17 23:12> - Medical Decision Making 05/28/17 15:56 52-year-old female, history of hyperlipidemia, hypertension, GERD and anxiety ( takes lorazepam daily) with chest pain. Patient states approximately one hour ago developed achy sub-sternal, non-radiating chest pain that is intermittent, 5 /10, lasts for seconds with no alleviating or exacerbating factors. No shortness of breath, diaphoresis, nausea, vomiting, palpitations, leg pain or swelling. No history of similar pain. No recent cardiac w/u. Patient reports that "My son is having problems" and became teary when she informed me of this. States she is not sure if she feels anxious at this time. Did take lorazepam since chest pain started, but not certain if it helped See exam CP Possible anxiety/stress component given hx Will r/o ACS given RFs, unlikely dissection or PE Stable w/ unremarkable exam -asa -ekg -cxr -lams -m/l lower heart score and can be r/o w/ 2 sets and discharged 05/28/17 16:01 05/28/17 17:21 05/28/17 18:37 Patient signed out to [facility] hospitalist pending second troponin at 9:30 pm. Patient has remained well-appearing and stable in ED, currently with no chest pain (Bryanna Charlton) *DC/Admit/Observation/Transfer <Bryanna Charlton - Last Filed: 05/28/17 18:37> <Harjeet,Mini S. - Last Filed: 05/28/17 23:12> Diagnosis at time of Disposition: Chest pain Qualifiers: Chest pain type: unspecified Qualified Code(s): R07.9 - Chest pain, unspecified - Discharge Dispostion Disposition: HOME Condition at time of disposition: Improved - Referrals
[2017-05-28] MEDS ORDERED: ASPIRIN 325 MG TABLET ONE (16:19)
[2017-05-28 16:43] LABS: BASOPHIL 0.7 % (0-2.0); EOSINOPHIL 1.4 % (0-4.5); MCHC 31.8 g/dl (32.0-36.0); MEAN CELL VOLUME 62.3 fl (80-96); MEAN PLT VOLUME 9.3 fl (7.5-11.1); NEUTROPHILS 72.1 % (42.8-82.8); PLATELET COUNT 281 K/MM3 (134-434); RDW 14.9 % (11.6-15.6); WHITE BLOOD COUNT 9.6 K/mm3 (4.0-10.0)
[2017-05-28 16:52] LABS: MCH 19.8 pg (25.7-33.7)
[2017-05-28 17:12] LABS: ALBUMIN 3.8 g/dl (3.4-5.0); ANION GAP 6 (8-16); BILIRUBIN,TOTAL 0.5 mg/dL (0.2-1.0); CALCIUM 8.9 mg/dL (8.5-10.1); CO2 28 mmol/L (21-32); CREATININE 0.7 mg/dL (0.55-1.02); GLUCOSE,RANDOM 91 mg/dL (74-106); SGOT/AST 17 U/L (15-37); SGPT/ALT 21 U/L (12-78); TOT PROT 6.8 g/dl (6.4-8.2)
[2017-05-28 17:15] LABS: ALK PHOS 112 U/L (45-117); CPK 81 IU/L (26-192); TROPONIN I < 0.02 ng/ml (0.00-0.05)
[2017-05-28 17:44] LABS: HYPOCHROMIA 3+; PLATELET ESTIMATE ADEQUATE (NORMAL); POIKILOCYTOSIS 1+; POLYCHROMASIA RARE
[2017-05-28 17:45] LABS: MICROCYTOSIS 2+; OVALOCYTE 1+
[2017-05-28 19:44] VITALS: BP 106/64; PULSE 64; TEMP 98.2
[2017-05-28 23:07] LABS: CPK 84 IU/L (26-192); TROPONIN I < 0.02 ng/ml (0.00-0.05)
--- NOTE | 2017-06-02 22:00 | EKG ---
Test Reason : Blood Pressure : / mmHG Vent. Rate : 075 BPM Atrial Rate : 075 BPM P-R Int : 132 ms QRS Dur : 072 ms QT Int : 382 ms P-R-T Axes : 039 -09 022 degrees QTc Int : 426 ms NORMAL SINUS RHYTHM VOLTAGE CRITERIA FOR LEFT VENTRICULAR HYPERTROPHY CANNOT RULE OUT SEPTAL INFARCT , AGE UNDETERMINED ABNORMAL ECG WHEN COMPARED WITH ECG OF 07-MAR-2017 22:29, NO SIGNIFICANT CHANGE WAS FOUND SUBMITTED FOR INTERPRETATION 05-31 REPEAT EKG IF CLINICALLY INDICATED Confirmed by INEZ COVARRUBIAS MD ([id number]) on 06/02/2017 10:00:05 PM Referred By: Confirmed By:INEZ COVARRUBIAS MD
== END 2017-05-29 00:23 | disposition home or self-care (01) ==
LOC: SUPCPDRO 15:21 → JER 15:21 → JERBED 17:19
PROVIDERS: ADMIT Internal Medicine; ATTEND Internal Medicine
DX: R07.9 Chest pain, unspecified (principal); I10 Essential (primary) hypertension; E78.00 Pure hypercholesterolemia, unspecified; F41.9 Anxiety disorder, unspecified
CPT/HCPCS: 36415; 71010-TC; 80053; 84484; 85025; 93005; 93010; 99283-25; G0378

== ENCOUNTER 2018-01-26 10:37 | Emergency (ER) | payer OTHER ==
[2018-01-26 10:54] VITALS: BMI 30.9
[2018-01-26 11:58] LABS: BASO % 0.9 % (0-2.0); EOS % 2.9 % (0-4.5); HEMATOCRIT 37.4 % (32.4-45.2); HEMOGLOBIN 11.7 GM/dL (10.7-15.3); MCHC 31.3 g/dl (32.0-36.0); MEAN CELL VOLUME 62.1 fl (80-96); MEAN PLT VOLUME 9.4 fl (7.5-11.1); MONO % 6.1 % (3.8-10.2); NEUT % 62.1 % (42.8-82.8); PLATELET COUNT 272 K/MM3 (134-434); RBC 6.02 M/mm3 (3.60-5.2); RDW 15.6 % (11.6-15.6); WHITE BLOOD COUNT 5.8 K/mm3 (4.0-10.0)
[2018-01-26 12:08] LABS: ADD RBC MORPHOLOGY YES; MCH 19.4 pg (25.7-33.7)
[2018-01-26 12:11] LABS: URINE APPEARANCE CLEAR; URINE BILIRUBIN NEGATIVE (<2.0 mg/dL); URINE COLOR STRAW; URINE GLUCOSE (UA) NEGATIVE (NEGATIVE); URINE KETONE NEGATIVE (NEGATIVE); URINE LEUK ESTERASE NEGATIVE (NEGATIVE); URINE NITRITE NEGATIVE (NEGATIVE); URINE PROTEIN NEGATIVE (NEGATIVE); URINE UROBILINOGEN NEGATIVE mg/dL (0.2-1.0)
--- NOTE | 2018-01-26 12:23 | PDOC ---
History of Present Illness - General Chief Complaint: Pain, Acute Stated Complaint: ABD PAIN Time Seen by Provider: 01/26/18 11:05 History Source: Patient Exam Limitations: No Limitations - History of Present Illness Initial Comments: 01/26/18 12:17 The patient is a 52F with a PMH of asthma, HTN, hyperlipidemia, anxiety who presents to the ER with abdominal pain. The patient states that she has had worsening abdominal pain x 5 days. She describes the pain as a pressure in her R abdomen which radiates to her R flank and leg. She denies any exacerbating or alleviating factors. She states that today the pain got much worse and became associated with lightheadedness and nausea, but no vomiting or fevers. She does admit to chills. She denies any hematuria, hematochezia, dysuria, and vaginal d/ c. Past History - Past Medical History Allergies/Adverse Reactions: Allergies Allergy/AdvReac Type Severity Reaction Status Date / Time Penicillins Allergy Intermediate Swelling Verified 01/26/18 10:50 Home Medications: Ambulatory Orders Amlodipine Besylate [Norvasc -] 2.5 mg PO BID 06/24/16 Lorazepam 0.5 mg PO DAILY 12/11/16 Budesonide/Formeterol Fumarate [SYMBICORT 160/4.5mcg -] 2 inh PO BID 01/26/18 Plecanatide [Trulance] 3 mg PO DAILY 01/26/18 Sertraline HCl [Zoloft -] 50 mg PO DAILY 01/26/18 Asthma: Yes COPD: No Diabetes: No Disorders: (HEMATURIA & FLANK PAIN) HTN: Yes Hypercholesterolemia: Yes Psychiatric Problems: Yes (ANXIETY.) - Surgical History Abdominal Surgery: Yes - Suicide/Smoking/Psychosocial Hx Smoking Status: No Smoking History: Never smoked Have you smoked in the past 12 months: No Number of Cigarettes Smoked Daily: 0 Hx Alcohol Use: No Drug/Substance Use Hx: No Substance Use Type: None Hx Substance Use Treatment: No Review of Systems - Review of Systems Able to Perform ROS?: Yes Comments:: 01/26/18 12:31 GENERAL/CONSTITUTIONAL: Positive for chills. No fever. No weakness. HEAD, EYES, EARS, NOSE AND THROAT: No change in vision. No ear pain or discharge. No sore throat. CARDIOVASCULAR: Positive for lightheadedness. No chest pain or palpitations. RESPIRATORY: No cough, wheezing, shortness of breath, or hemoptysis. GASTROINTESTINAL: Positive for nausea and abdominal pain. No vomiting, diarrhea , or constipation. GENITOURINARY: No dysuria, frequency, hematuria, or change in urination. MUSCULOSKELETAL: No joint or muscle swelling or pain. No neck or back pain. SKIN: No rash or lesions. NEUROLOGIC: No headache, numbness, tingling, weakness, loss of consciousness, or change in strength/sensation. ENDOCRINE: No increased thirst. No abnormal weight change. HEMATOLOGIC/LYMPHATIC: No anemia, easy bleeding, or history of blood clots. ALLERGIC/IMMUNOLOGIC: No hives or skin allergy. Is the patient limited Italian proficient: No *Physical Exam - Vital Signs Last Vital Signs Temp Pulse Resp BP Pulse Ox 98.7 F 70 19 114/71 99 01/26/18 10:50 01/26/18 10:50 01/26/18 10:50 01/26/18 10:50 01/26/18 10:50 - Physical Exam Comments: 01/26/18 12:52 GENERAL: Well developed, well nourished. Awake and alert. No acute distress. HEENT: Normocephalic, atraumatic. Hearing grossly normal. Moist mucous membranes. PERRLA, EOMI. No conjunctival pallor. Sclera are non-icteric. NECK: Supple. Full ROM. CARDIOVASCULAR: Regular rate and rhythm. No murmurs, rubs, or gallops. PULMONARY: No evidence of respiratory distress. Lungs clear to auscultation bilaterally. No wheezing, rales or rhonchi. ABDOMINAL: Soft. Tender to palpation over RLQ at McBurney's point with rebound and guarding. Non-distended. GENITOURINARY: Mild R CVA tenderness. MUSCULOSKELETAL: Normal range of motion at all joints. No bony deformities or tenderness. EXTREMITIES: No cyanosis. No clubbing. No edema. No calf tenderness. SKIN: Warm and dry. Normal capillary refill. No rashes. No jaundice. NEUROLOGICAL: Alert, awake, appropriate. Cranial nerves 2-12 intact. Normal speech. Gait is normal without ataxia. PSYCHIATRIC: Cooperative. Good eye contact. Appropriate mood and affect. ED Treatment Course - LABORATORY CBC & Chemistry Diagram: 01/26/18 11:40 01/26/18 11:40 - ADDITIONAL ORDERS Additional order review: Laboratory Results 01/26/18 11:55 Urine Color Straw Urine Appearance Clear Urine pH 5.0 Ur Specific [place] 1.005 Urine Protein Negative Urine Glucose (UA) Negative Urine Ketones Negative Urine Blood Negative Urine Nitrite Negative Urine Bilirubin Negative Urine Urobilinogen Negative Ur Leukocyte Esterase Negative 01/26/18 11:40 RBC 6.02 H MCV 62.1 L MCHC 31.3 L RDW 15.6 MPV 9.4 Neutrophils % 62.1 Lymphocytes % 28.0 D Monocytes % 6.1 Eosinophils % 2.9 D Basophils % 0.9 Medical Decision Making - Medical Decision Making 01/26/18 12:59 The patient is a 52F with a PMH of HTN, HLD, anxiety who presents to the ER with worsening abdominal pain. Concern for appendicitis, diverticulitis, pyelo, UTI, nephrolithiasis. Pending labs/imaging. No WBC. No hematuria. Will send for CTAP w/ IV contrast. 01/26/18 14:21 CT read: IMPRESSION: Motion/breathing artifacts and lack of oral contrast are limiting this exam The dome of the diaphragm/right hepatic lobe was not included on this exam. There is no evidence of small bowel obstruction. Normal- appearing appendix. Tiny fat-containing umbilical hernia. A few diverticula in the proximal and mid sigmoid colon without evidence of acute diverticulitis. 1.1 cm right adnexal cyst/dominant follicle. There is no CT evidence of an acute process in the abdomen pelvis to explain the patient's symptoms. Correlate clinically to determine further evaluation and follow-up. Will update patient. 01/26/18 14:27 Pt understands and agrees to f/u with PCP and GI. On repeat exam, the patient is persistently tender but without rebound, guarding , or rigidity. I have informed Dr. Sheikh of the pt and he knows to expect her f /u. *DC/Admit/Observation/Transfer Diagnosis at time of Disposition: Abdominal pain Qualifiers: Abdominal location: right lower quadrant Qualified Code(s): R10.31 - Right lower quadrant pain - Discharge Dispostion Disposition: HOME Condition at time of disposition: Stable Decision to Admit order: No - Referrals Referrals: Opal Griffin MD [Primary Care Provider] - - Patient Instructions Printed Discharge Instructions: DI for Abdominal Pain-Adult Additional Instructions: Please follow up with your primary care physician in 2-3 days. Please return to the ER if you have any signs or symptoms of chest pain, shortness of breath, uncontrollable fever, chills, nausea, vomiting, numbness, tingling, or weakness in any part of your body, changes in vision, or slurred speech. Please take your medications as prescribed. Please return to the ER if symptoms persist, worsen, or new symptoms arise. Por favor, jhonny un seguimiento con bella mdico de atencin primaria en 2-3 lovelace. Por favor regrese a la shannon de emergencia si tiene signos o sntomas de dolor en el pecho, dificultad para respirar, fiebre incontrolable, escalofros, n useas, vmitos, entumecimiento, hormigueo o debilidad en cualquier parte de bella cuerpo, cambios en la visin o dificultad para hablar. Por favor tome sanjuanita medicamentos segn lo recetado. Por favor regrese a la shannon de emergencias si los sntomas persisten, empeoran o surgen nuevos sntomas. - Post Discharge Activity
[2018-01-26 12:24] LABS: ALBUMIN 3.8 g/dl (3.4-5.0); ANION GAP 10 (8-16); BLOOD UREA NITROGEN 8 mg/dL (7-18); CALCIUM 8.9 mg/dL (8.5-10.1); CHLORIDE 107 mmol/L (98-107); CO2 25 mmol/L (21-32); CREATININE 0.7 mg/dL (0.55-1.02); GLUCOSE,RANDOM 82 mg/dL (74-106); LIPASE 152 U/L (73-393); POTASSIUM 4.3 mmol/L (3.5-5.1); SGOT/AST 20 U/L (15-37); SGPT/ALT 22 U/L (12-78); SODIUM 142 mmol/L (136-145)
[2018-01-26 12:26] LABS: ALK PHOS 124 U/L (45-117); BILIRUBIN,TOTAL 0.6 mg/dL (0.2-1.0)
--- NOTE | 2018-01-26 13:36 | PDOC ---
Attending Attestation - Resident Resident Name: SunnyheverkhloeVignesh - ED Attending Attestation I have performed the following: I have examined & evaluated the patient, The case was reviewed & discussed with the resident, I agree w/resident's findings & plan - HPI HPI: 01/26/18 13:31 52-year-old female presents with worsening right lower abdominal pain over the last few days, associated with some constipation but had normal bowel movement yesterday after taking a laxative. No fevers or chills, no urinary complaints, no vomiting. Has had 2 episodes of this pain in the past, states she required a procedure to resolve it, but is unable to provide further information. - Physicial Exam PE: 01/26/18 13:32 Vital signs normal Abdomen soft and nondistended. Tender with guarding in the right lower quadrant and suprapubic region, rebound to the right abdomen, bowel sounds are normal. - Medical Decision Making 01/26/18 13:32 Patient seen and evaluated with the resident. I agree with the overall evaluation, assessment, and management with the following summary of visit: 52-year-old female with worsening right lower quadrant pain, similar to pain she has had in the past. Question GI versus etiology as she has had both colonoscopies and cystoscopies in the past. Labs, urinalysis CT of the abdomen and pelvis We'll discuss with Dr. Sheikh, who knows her case well Reassess and disposition accordingly 01/26/18 15:07 labs wnl. CTAP without acute pathology. exam improved, no peritoneal findings. case reviewed with Dr. Sheikh, very familiar with patient, has no additional concerns and agrees she can be discharged. Will f/u in office. Pt agrees, understands return criteria.
[2018-01-26] MEDS ORDERED: ACETAMINOPHEN 325 MG TABLET (FP) PO ONE (15:02)
[2018-01-26] MEDS ORDERED: ACETAMINOPHEN 325 MG TABLET (FP) ONE (15:05)
[2018-01-26 15:43] VITALS: BP 122/72; PULSE 61; TEMP 98.3
== END 2018-01-26 15:35 | disposition home or self-care (01) ==
LOC: JER 10:37
DX: R10.31 Right lower quadrant pain (principal); J45.909 Unspecified asthma, uncomplicated; I10 Essential (primary) hypertension; E78.5 Hyperlipidemia, unspecified; F41.9 Anxiety disorder, unspecified
CPT/HCPCS: 36415; 74177-TC; 80053; 81003; 83690; 85025; 99282-25

== ENCOUNTER 2019-01-29 17:27 | Emergency (ER) | payer OTHER ==
[2019-01-29 17:43] VITALS: BP 123/77; PULSE 84; TEMP 98.4; BMI 31.9
--- NOTE | 2019-01-29 17:53 | PDOC ---
History of Present Illness - General Chief Complaint: Pain, Acute Stated Complaint: ABD PAIN Time Seen by Provider: 01/29/19 17:51 - History of Present Illness Initial Comments: 01/29/19 18:42 The patient is a 53 year old female with a history of HTN, HLD, Anxiety who presents for evaluation of abdominal pain. The patient reports a 4 day history of lower abdominal pain that she describes as crampy and twisting in nature. She initially presented to her GI specialist Dr. Sheikh who started the patient on Cipro and flagyl. The patient notes continued and worsening symptoms prompting her presentation to the ED for further evaluation. The patient notes worsening symptoms with movement but otherwise denies fevers, chills, SOB, chest pain, nausea, vomiting, or changes with urination or bowel movements. Past History - Past Medical History Allergies/Adverse Reactions: Allergies Allergy/AdvReac Type Severity Reaction Status Date / Time Penicillins Allergy Intermediate Swelling Verified 01/26/18 10:50 ibuprofen AdvReac Verified 01/29/19 20:40 morphine AdvReac Verified 01/29/19 20:39 Home Medications: Ambulatory Orders Amlodipine Besylate [Norvasc -] 2.5 mg PO BID 06/24/16 Lorazepam 0.5 mg PO DAILY 12/11/16 Budesonide/Formeterol Fumarate [SYMBICORT 160/4.5mcg -] 2 inh PO BID 01/26/18 Plecanatide [Trulance] 3 mg PO DAILY 01/26/18 Sertraline HCl [Zoloft -] 50 mg PO DAILY 01/26/18 Asthma: Yes COPD: No Diabetes: No Disorders: (HEMATURIA & FLANK PAIN) HTN: Yes Hypercholesterolemia: Yes Psychiatric Problems: Yes (ANXIETY.) - Surgical History Abdominal Surgery: Yes - Suicide/Smoking/Psychosocial Hx Smoking Status: No Smoking History: Never smoked Have you smoked in the past 12 months: No Number of Cigarettes Smoked Daily: 0 Information on smoking cessation initiated: No Hx Alcohol Use: No Drug/Substance Use Hx: No Substance Use Type: None Hx Substance Use Treatment: No Review of Systems - Review of Systems Comments:: 01/29/19 19:13 Constitutional: No fevers, chills, fatigue, malaise HEENT: No Rhinorrhea, nasal congestion, visual changes Cardiovascular: No chest pain, syncope, palpitations, lightheadedness Respiratory: No Cough, SOB, Hemoptysis, Gastrointestinal: Lower Abdominal pain. No Nausea, Vomiting, Constipation, Diarrhea, Melena Genitourinary: No Dysuria, Frequency, Urgency, Hesitancy, Hematuria, Flank pain Musculoskeletal: No Myalgia, arthralgia Skin: No rashes, itching, bruising, pallor Neurologic: No Headache, Dizziness, Numbness, Weakness, or Tingling Psychiatric: No Hallucinations. No SI or HI *Physical Exam - Vital Signs Last Vital Signs Temp Pulse Resp BP Pulse Ox 98.4 F 84 16 123/77 100 01/29/19 17:40 01/29/19 17:40 01/29/19 17:40 01/29/19 17:40 01/29/19 17:40 - Physical Exam Comments: 01/29/19 19:13 General Appearance: Nourished. In Mild Apparent Distress HEENT: No Pharyngeal Erythema, Tonsillar Exudate, Tonsillar Erythema Neck: No Cervical Lymphadenopathy Respiratory/Chest: Lungs Clear, Normal Breath Sounds. No Crackles, Rales, Rhonchi, Wheezing Cardiovascular: Regular Rhythm, Regular Rate. No Murmur, Gallops, Rubs Gastrointestinal/Abdominal: Lower abdominal tenderness to palpation with guarding. No Rebound, Musculoskeletal: No CVA Tenderness Extremity: Normal Capillary Refill Integumentary: Normal Color, Dry, Warm Neurologic: Fully Oriented, Alert, Normal Mood/Affect, Normal Response, ED Treatment Course - LABORATORY CBC & Chemistry Diagram: 01/29/19 18:40 01/29/19 18:40 Medical Decision Making - Medical Decision Making 01/29/19 19:14 The patient is a 53 year old female with a history of HTN, HLD, Anxiety who presents for evaluation of abdominal pain. Differential includes but is not limited to: Appendicitis, diverticulitis, Pancreatitis, Infectious, Metabolic Derangement. Given the patient's history and physical exam, we will obtain a cbc, cmp, coags, lipase, troponin, UA, CT abdomen/pelvis to evaluate further. We will treat with iv fluids and tylenol and continue to monitor and reassess while here in the ED. 01/29/19 23:08 CBC, cmp, coags, lipase, troponin, UA are unremarkable. CT abdomen/pelvis does not demonstrate any acute process in the abdomen as preliminarily read by our brickmason radiologist. The patient was reassessed and reports improvement in their symptoms. We are comfortable discharging the patient home in stable condition. Patient and family made aware of impression and plan, return precautions discussed including but not limited to worsening pain or symptoms, fevers, or signs of infection, chest pain, respiratory distress, inability to tolerate oral intake, dehydration, syncope, or neurologic changes. The patient is to follow up with PMD and specialist as recommended within 2-3 days, follow up information provided and the patient will call for an appointment. The patient is to take medications as instructed for duration of time and continue with supportive care, avoid triggers and precipitants. Patient is safe for outpatient follow-up. *DC/Admit/Observation/Transfer Diagnosis at time of Disposition: Abdominal pain Qualifiers: Abdominal location: unspecified location Qualified Code(s): R10.9 - Unspecified abdominal pain - Discharge Dispostion Disposition: HOME Condition at time of disposition: Stable - Referrals Referrals: Opal Griffin MD [Primary Care Provider] - Girma Sheikh MD [Staff Physician] - - Patient Instructions Printed Discharge Instructions: DI for Abdominal Pain-Adult Additional Instructions: 1) Please follow-up with your primary care doctor and GI specialist in the next 2-3 days. Please call tomorrow to schedule a follow up appointment. If you cannot follow up with your doctor within 1 week please return to the Emergency Department for any urgent issues. 2) Your laboratory / imaging results were normal here in the ER. 3) If you have any worsening of symptoms or any other concerns please return to the ER immediately. Return if worsening symptoms including fevers, headache, vomiting, visual or hearing disturbances, abdominal pain, chest pain, shortness of breath, syncope, dehydration, inability to take things by mouth/vomiting, altered mental status, or worsening concerning symptoms. 4) Please continue taking your home medications as directed. Side effects may include upset stomach, abdominal pain, vomiting, or diarrhea. - Post Discharge Activity
[2019-01-29] MEDS ORDERED: ACETAMINOPHEN 1000 MG/100 ML VIAL (NON FORMULARY) IVPB ONE (18:03)
[2019-01-29] MEDS ORDERED: SODIUM CHLORIDE 1,000 ML IV STA (18:03)
[2019-01-29] MEDS ORDERED: ACETAMINOPHEN INJECTION 100 ML IVPB ONE (18:14)
[2019-01-29 18:53] LABS: BASO % 0.9 % (0-2.0); EOS % 2.5 % (0-4.5); HEMATOCRIT 37.5 % (32.4-45.2); HEMOGLOBIN 11.7 GM/dL (10.7-15.3); LYMPH % 32.1 % (8-40); MCHC 31.1 g/dl (32.0-36.0); MEAN CELL VOLUME 62.4 fl (80-96); MEAN PLT VOLUME 8.9 fl (7.5-11.1); MONO % 6.3 % (3.8-10.2); NEUT % 58.2 % (42.8-82.8); PLATELET COUNT 289 K/MM3 (134-434); RBC 6.01 M/mm3 (3.60-5.2); RDW 15.1 % (11.6-15.6); WHITE BLOOD COUNT 7.1 K/mm3 (4.0-10.0)
[2019-01-29 19:02] LABS: MCH 19.4 pg (25.7-33.7)
[2019-01-29 19:09] LABS: INR 0.96 (0.83-1.09); PROTHROMBIN TIME (PATIENT) 11.3 SEC (9.7-13.0)
--- NOTE | 2019-01-29 19:10 | PDOC ---
Documentation entered by Shiva Serra SCRIBE, acting as scribe for Lexy Marin MD. Lexy Marin MD: This documentation has been prepared by the Ponce quiroz Nirvannie, SCRIBE, under my direction and personally reviewed by me in its entirety. I confirm that the documentation accurately reflects all work, treatment, procedures, and medical decision making performed by me. Attending Attestation - Resident Resident Name: Bryan Moses - ED Attending Attestation I have performed the following: I have examined & evaluated the patient, The case was reviewed & discussed with the resident, I agree w/resident's findings & plan, Exceptions are as noted - HPI HPI: 01/29/19 19:02 The patient is a 53 year old female, with a significant past medical history of asthma, HTN, hyperlipidemia, anxiety, who presents to the emergency department with, 5 days of worsening right lower abdominal pain and right sided flank/back pain. Patient is currently on day 4 of Ciprofloxacin and Flagyl. She denies recent fevers, chills, headache or dizziness. She denies recent dysuria, frequency, urgency or hematuria. She denies recent chest pain or shortness of breath. Allergies: Penicillins. Primary Care Physician: Dr. Griffin - Physicial Exam PE: 01/29/19 18:40 GENERAL: The patient is in no acute distress. ENT: Ears normal, nares patent, oropharynx clear without exudates. Moist mucous membranes. NECK: Normal range of motion, supple LUNGS: Breath sounds equal, clear to auscultation bilaterally. No wheezes, and no crackles. HEART:Regular rate and rhythm, normal S1 and S2 without murmur, rub or gallop. ABDOMEN: Soft, severe RLQ tenderness to palpation, voluntary guarding, no rebound EXTREMITIES: Normal range of motion, no edema. NEUROLOGICAL: Cranial nerves II through XII grossly intact. Normal speech. No focal neurological deficits. SKIN: Warm, Dry, normal turgor, no rashes or lesions noted. - Medical Decision Making 01/29/19 18:43 53 yo F h/o asthma, htn, hld presenting with RLQ pain, present for the past 5 days Pt was seen by GI doctor who started Cipro and flagyl
[2019-01-29 19:12] LABS: ACTIVATED PTT 33.6 SECONDS (25.2-36.5)
[2019-01-29 19:24] LABS: ALBUMIN 4.2 g/dl (3.4-5.0); ALK PHOS 135 U/L (45-117); ANION GAP 7 MMOL/L (8-16); BILIRUBIN,TOTAL 0.5 mg/dL (0.2-1); BLOOD UREA NITROGEN 12 mg/dL (7-18); CALCIUM 8.9 mg/dL (8.5-10.1); CHLORIDE 107 mmol/L (98-107); CO2 27 mmol/L (21-32); GLUCOSE,RANDOM 93 mg/dL (74-106); LIPASE 103 U/L (73-393); POTASSIUM 4.2 mmol/L (3.5-5.1); SGOT/AST 18 U/L (15-37); SGPT/ALT 21 U/L (13-61); SODIUM 141 mmol/L (136-145); TOT PROT 7.3 g/dl (6.4-8.2)
[2019-01-29 19:27] LABS: PH,URINE 6.5 (5.0-8.0); URINE APPEARANCE CLEAR; URINE BILIRUBIN NEGATIVE (NEGATIVE); URINE COLOR YELLOW; URINE GLUCOSE (UA) NEGATIVE (NEGATIVE); URINE KETONE NEGATIVE (NEGATIVE); URINE LEUK ESTERASE NEGATIVE (NEGATIVE); URINE NITRITE NEGATIVE (NEGATIVE); URINE PROTEIN NEGATIVE (NEGATIVE); URINE UROBILINOGEN 0.2 mg/dL (0.2-1.0)
[2019-01-29 19:42] LABS: ANISOCYTOSIS 1+
[2019-01-29] MEDS ORDERED: morphine CARPU-JECT 4 MG/1 ML DISP.SYRIN IVPUSH ONE (20:12)
[2019-01-29] MEDS ORDERED: morphine SULFATE 4 MG/ML VIAL ONE (20:16)
[2019-01-29] MEDS ORDERED: HYDROmorphone HCL CARPU-JECT 2 MG/1 ML DISP.SYRIN IVPUSH ONE (20:23)
[2019-01-29] MEDS ORDERED: HYDROmorphone HCl 2 MG/ML VIAL ONE (20:48)
== END 2019-01-29 23:33 | disposition home or self-care (01) ==
LOC: JER 17:27
PROC: 3E0337Z Introduction of Electrolytic and Water Balance Substance into Peripheral Vein, Percutaneous Approach (ICD-10-PCS; principal; 2019-01-29)
PROC: 3E033NZ Introduction of Analgesics, Hypnotics, Sedatives into Peripheral Vein, Percutaneous Approach (ICD-10-PCS; 2019-01-29)
PROC: 3E033NZ Introduction of Analgesics, Hypnotics, Sedatives into Peripheral Vein, Percutaneous Approach (ICD-10-PCS; 2019-01-29)
DX: R10.30 Lower abdominal pain, unspecified (principal); I10 Essential (primary) hypertension; E78.5 Hyperlipidemia, unspecified; F41.8 Other specified anxiety disorders; Z87.09 Personal history of other diseases of the respiratory system
CPT/HCPCS: 36415; 74177-TC; 80053; 81003; 82550; 83690; 84484; 85025; 85610; 85730; 87086; 96361; 96374; 96375; 99282-25; J0131; J7030

== ENCOUNTER → 2019-02-10 | Day surgery (SDC) | payer OTHER ==
--- NOTE | 2019-02-11 14:30 | PATH ---
Surgical Pathology Report Patient Name: JYOTI MARTIN [facility]. Rec. #: [id number] /Age/Gender: 1965 (Age: 53) / F Account: <[id number]> Location: RADIOLOGY [facility] Taken: 02/10/2019 Received: 02/10/2019 Reported: 02/11/2019 Physicians: Henry Serrano M.D. Specimen(s) Received RIGHT BREAST 10:30 1.1CM MASS Clinical History Nonpalpable lesion Mammographic findings/ultrasound findings: Suspicious Final Diagnosis RIGHT BREAST, 10:30, 1.1 CM MASS, ULTRASOUND GUIDED CORE BIOPSY: FIBROADIPOSE TISSUE WITH FOCAL FAT NECROSIS, HISTIOCYTIC REACTION, AND CHRONIC INFLAMMATORY CELLS INFILTRATE. Electronically Signed Corby Morgan M.D. Gross Description Received in formalin labeled "right breast 10:30," are 4 btucher-yellow, cylindrical portions of fibroadipose tissue ranging from 1.0-1.4 cm in length and averaging 0.1 cm in diameter. The specimens are submitted in toto in one cassette. Time to formalin fixation: Less than one minute Total formalin fixation time: Approximately 9 hours. /02/10/2019 saudi/02/10/2019
== END | disposition home or self-care (01) ==
LOC: JMAMMO 07:37 → JRADUS-SUR 07:37
PROVIDERS: ATTEND Surgery
PROC: 0HBT3ZX Excision of Right Breast, Percutaneous Approach, Diagnostic (ICD-10-PCS; principal; 2019-02-10)
DX: N60.21 Fibroadenosis of right breast (principal)
CPT/HCPCS: 19083; 87899; 88305-TC; A4648

== ENCOUNTER 2019-04-20 11:42 | Emergency (ER) | payer OTHER ==
--- NOTE | 2019-04-20 11:50 | PDOC ---
Rapid Medical Evaluation Time Seen by Provider: 04/20/19 11:47 Medical Evaluation: Allergies Allergy/AdvReac Type Severity Reaction Status Date / Time Penicillins Allergy Intermediate Swelling Verified 01/26/18 10:50 ibuprofen AdvReac Verified 01/29/19 20:40 morphine AdvReac Verified 01/29/19 20:39 04/20/19 11:47 I have performed a brief in-person evaluation of this patient. The patient presents with a chief complaint of: "I have a kidney stone." Pertinent physical exam findings: pt refusing exam I have ordered the following: toradol The patient will proceed to the ED for further evaluation. Discharge Disposition - Diagnosis Acute right flank pain - Referrals - Patient Instructions - Post Discharge Activity
[2019-04-20 11:52] VITALS: TEMP 98.3; BMI 32.3
--- NOTE | 2019-04-20 13:02 | PDOC ---
History of Present Illness - General Chief Complaint: Pain, Acute Stated Complaint: RT FLANK/LEG PAIN Time Seen by Provider: 04/20/19 11:47 History Source: Patient, Veterinary Technician Used ([id number]) - History of Present Illness Initial Comments: 04/20/19 14:20 Patient with h/o HPL, anxiety, renal stone present with complains of right flank pain and b/l lower back pain which has been persistent for 3 months now which has been worsening. Patient is being followed by urologist Dr. Kelsea springer who saw her a week ago and started her on macrobid for a week and f/u today but pt never took Abx as she didnt like the way the medication makes her feel. Patient report she called urologist office today and report she is having increased pain, so she was instructed to come to ED instead of clinic appointment. Patient report she was being scheduled for lithotripsy. Denies fever, chills, N/V. pt report taking Tylenol for pain w/o improvement due to unable for take motrin due to h/o gastritis in the past. Timing/Duration: other (3 months) Past History - Past Medical History Allergies/Adverse Reactions: Allergies Allergy/AdvReac Type Severity Reaction Status Date / Time Penicillins Allergy Intermediate Swelling Verified 04/20/19 11:52 ibuprofen AdvReac Verified 04/20/19 11:52 morphine AdvReac Verified 04/20/19 11:52 Home Medications: Ambulatory Orders Amlodipine Besylate [Norvasc -] 2.5 mg PO BID 06/24/16 Lorazepam 0.5 mg PO DAILY 12/11/16 Budesonide/Formeterol Fumarate [SYMBICORT 160/4.5mcg -] 2 inh PO BID 01/26/18 Plecanatide [Trulance] 3 mg PO DAILY 01/26/18 Sertraline HCl [Zoloft -] 50 mg PO DAILY 01/26/18 Methocarbamol [Robaxin -] 500 mg PO BID #14 tablet 01/29/19 Methocarbamol [Robaxin -] 500 mg PO BID #14 tablet 04/20/19 Methylprednisolone [Medrol Dose Mack] 4 mg PO ASDIR #21 tablet 04/20/19 Tamsulosin HCl [Flomax] 0.4 mg PO DAILY #7 cap.er.24h 04/20/19 Asthma: Yes COPD: No Diabetes: No Disorders: (HEMATURIA & FLANK PAIN) HTN: Yes Hypercholesterolemia: Yes Psychiatric Problems: Yes (ANXIETY.) - Surgical History Abdominal Surgery: Yes - Suicide/Smoking/Psychosocial Hx Smoking Status: No Smoking History: Never smoked Have you smoked in the past 12 months: No Number of Cigarettes Smoked Daily: 0 Hx Alcohol Use: No Drug/Substance Use Hx: No Substance Use Type: None Hx Substance Use Treatment: No Review of Systems - Review of Systems Able to Perform ROS?: Yes Is the patient limited Spanish proficient: No Constitutional: No: Chills, Fever, Malaise HEENTM: No: Symptoms Reported Respiratory: No: Symptoms reported Cardiac (ROS): No: Symptoms Reported ABD/GI: Yes: Symptoms Reported, See HPI, Abdominal cramping (right flank) : Yes: Symptoms Reported, See HPI, Flank Pain (right flank). No: Burning, Dysuria, Discharge, Frequency, Hematuria, Urgency Musculoskeletal: Yes: Symptoms Reported, See HPI, Back Pain (b/l lower back pain ). No: Muscle Weakness Integumentary: No: Symptoms Reported Neurological: Yes: Symptoms reported, See HPI, Tingling (going down right thigh) . No: Headache, Numbness, Paresthesia All Other Systems: Reviewed and Negative *Physical Exam - Vital Signs Last Vital Signs Temp Pulse Resp BP Pulse Ox 98.3 F 69 16 123/82 99 04/20/19 11:47 04/20/19 11:47 04/20/19 11:47 04/20/19 11:47 04/20/19 11:47 - Physical Exam Comments: 04/20/19 13:43 GENERAL: Well developed, well nourished. Awake and alert in moderate acute distress. HEENT: Normocephalic, atraumatic. PERRLA, EOMI. No conjunctival pallor. Sclera are non-icteric. Moist mucous membranes. Oropharynx is clear. NECK: Supple. Full ROM. CARDIOVASCULAR: Regular rate and rhythm. No murmurs, rubs, or gallops. Distal pulses are 2+ and symmetric. PULMONARY: No evidence of respiratory distress. Lungs clear to auscultation bilaterally. No wheezing, rales or rhonchi. ABDOMINAL: Soft. Moderate diffuse subjective abdominal tenderness with more tenderness to right flank area. Non-distended. No rebound or guarding. No organomegaly. Normoactive bowel sounds. MUSCULOSKELETAL Normal range of motion at all joints. Moderate tenderness of bilateral paravertebral muscle of lower lumbar spine of L4-S2. SKIN: Warm and dry. Normal capillary refill. No rashes. No jaundice. NEUROLOGICAL: Alert, awake, appropriate. Gait is normal without ataxia. PSYCHIATRIC: Cooperative. Good eye contact. Appropriate mood General Appearance: Yes: Nourished, Appropriately Dressed, Moderate Distress ED Treatment Course - LABORATORY CBC & Chemistry Diagram: 04/20/19 13:55 04/20/19 13:55 Medical Decision Making - Medical Decision Making 04/20/19 14:20 Patient with h/o HPL, anxiety, renal stone present with complains of right flank pain and b/l lower back pain which has been persistent for 3 months now which has been worsening. Patient is being followed by urologist Dr. Kelsea springer who saw her a week ago and started her on macrobid for a week and f/u today but pt never took Abx as she didnt like the way the medication makes her feel. Patient report she called urologist office today and report she is having increased pain, so she was instructed to come to ED instead of clinic appointment. pt report right kidney stone was only seen on renal ultrasound done by urologist in the office.Patient report she was being scheduled for lithotripsy. Denies fever, chills, N/V. pt report taking Tylenol for pain w/o improvement due to unable for take motrin due to h/o gastritis in the past. Exam significant for subjective diffused abdominal and b/l lower abdominal pains w/o guarding or rebound. Spoke to patient urologist Dr. Enamorado who advised to evaluate for obstructing stone and f/u in clinic if no acute pathology or obstructing stone and will come see patient in-house if patient ends up getting admitted CBC,CMP,LIPase, UA, Ucx labs ordered. spiral CT ordered to r/o obstructing stone. Tylenol 1G IV ordered for pain. Robaxen 500mg PO given for spasm 04/20/19 16:28 CBC shows no elevated wbcs. UA unremarkable. abd/pelvis CT shows no renal stone or acute pathology. Patient stable for discharge on medrol-mack for inflammatory effect, robaxin for spasm with follow-up back in urology clinic *DC/Admit/Observation/Transfer Diagnosis at time of Disposition: Acute right flank pain - Discharge Dispostion Disposition: HOME Condition at time of disposition: Stable Decision to Admit order: No - Prescriptions Prescriptions: Methocarbamol [Robaxin -] 500 mg PO BID #14 tablet Methylprednisolone [Medrol Dose Mack] 4 mg PO ASDIR #21 tablet Tamsulosin HCl [Flomax] 0.4 mg PO DAILY #7 cap.er.24h - Referrals Referrals: Opal Griffin MD [Primary Care Provider] - - Patient Instructions Printed Discharge Instructions: Kidney Stones -- Adult Additional Instructions: Take medications as prescribed. Increase fluid intake. Call urologist Dr Enamroado as instructed by him to follow-up back up in the clinic with him - Post Discharge Activity
[2019-04-20 13:10] LABS: URINE APPEARANCE CLEAR; URINE BILIRUBIN NEGATIVE (NEGATIVE); URINE COLOR YELLOW; URINE GLUCOSE (UA) NEGATIVE (NEGATIVE); URINE KETONE NEGATIVE (NEGATIVE); URINE LEUK ESTERASE NEGATIVE (NEGATIVE); URINE NITRITE NEGATIVE (NEGATIVE); URINE PROTEIN NEGATIVE (NEGATIVE); URINE UROBILINOGEN 0.2 mg/dL (0.2-1.0)
[2019-04-20] MEDS ORDERED: ACETAMINOPHEN 1000 MG/100 ML VIAL (NON FORMULARY) IVPB ONE (13:22)
--- NOTE | 2019-04-20 13:41 | PDOC ---
*Physical Exam - Vital Signs Last Vital Signs Temp Pulse Resp BP Pulse Ox 98.3 F 69 16 123/82 99 04/20/19 11:47 04/20/19 11:47 04/20/19 11:47 04/20/19 11:47 04/20/19 11:47 ED Treatment Course - LABORATORY CBC & Chemistry Diagram: 04/20/19 13:55 04/20/19 13:55 - ADDITIONAL ORDERS Additional order review: Laboratory Results 04/20/19 12:44 Urine Color Yellow Urine Appearance Clear Urine pH 5.0 D Ur Specific [place] 1.012 Urine Protein Negative Urine Glucose (UA) Negative Urine Ketones Negative Urine Blood Negative Urine Nitrite Negative Urine Bilirubin Negative Urine Urobilinogen 0.2 Ur Leukocyte Esterase Negative Medical Decision Making - Medical Decision Making 04/20/19 13:41 Pt seen by Midlevel Provider under my direct supervision Ancillary studies reviewed 04/20/19 15:40 CT: no evidence of obstructive uropathy Will plan to discharge to home 04/22/19 17:35 *DC/Admit/Observation/Transfer Diagnosis at time of Disposition: Acute right flank pain - Discharge Dispostion Disposition: HOME Condition at time of disposition: Stable - Prescriptions Prescriptions: Methocarbamol [Robaxin -] 500 mg PO BID #14 tablet Methylprednisolone [Medrol Dose Mack] 4 mg PO ASDIR #21 tablet Tamsulosin HCl [Flomax] 0.4 mg PO DAILY #7 cap.er.24h - Referrals Referrals: Opal Griffin MD [Primary Care Provider] - - Patient Instructions Printed Discharge Instructions: Kidney Stones -- Adult Additional Instructions: Take medications as prescribed. Increase fluid intake. Call urologist Dr Enamorado as instructed by him to follow-up back up in the clinic with him - Post Discharge Activity
[2019-04-20] MEDS ORDERED: ACETAMINOPHEN INJECTION 100 ML IVPB ONE (13:58)
[2019-04-20 14:07] LABS: BASO % 1.6 % (0-2.0); EOS % 2.5 % (0-4.5); HEMATOCRIT 37.8 % (32.4-45.2); LYMPH % 34.4 % (8-40); MCHC 31.7 g/dl (32.0-36.0); MEAN CELL VOLUME 62.8 fl (80-96); MEAN PLT VOLUME 9.1 fl (7.5-11.1); MONO % 5.9 % (3.8-10.2); NEUT % 55.6 % (42.8-82.8); RBC 6.02 M/mm3 (3.60-5.2); RDW 15.9 % (11.6-15.6); WHITE BLOOD COUNT 6.7 K/mm3 (4.0-10.0)
[2019-04-20 14:34] LABS: MCH 19.9 pg (25.7-33.7); PLATELET COUNT 305 K/MM3 (134-434)
[2019-04-20 15:40] LABS: ANISOCYTOSIS 3+; MACROCYTOSIS 0; PLATELET ESTIMATE NORMAL; TARGET CELLS 1+
[2019-04-20] MEDS ORDERED: METHOCARBAMOL 500 MG TABLET PO ONE (16:01)
[2019-04-20] MEDS ORDERED: METHOCARBAMOL 500 MG TABLET ONE (16:11)
[2019-04-20 16:21] VITALS: BP 126/72; PULSE 85
== END 2019-04-20 16:21 | disposition home or self-care (01) ==
LOC: JER 11:42
PROC: 3E033NZ Introduction of Analgesics, Hypnotics, Sedatives into Peripheral Vein, Percutaneous Approach (ICD-10-PCS; principal; 2019-04-20)
DX: R10.31 Right lower quadrant pain (principal); Z87.442 Personal history of urinary calculi; E78.5 Hyperlipidemia, unspecified; F41.9 Anxiety disorder, unspecified
CPT/HCPCS: 36415; 74176-TC; 81003; 84703; 85025; 87086; 99282-25; J0131

== ENCOUNTER 2019-11-08 16:56 | Emergency (ER) | payer OTHER ==
--- NOTE | 2019-11-08 17:10 | PDOC ---
Rapid Medical Evaluation Time Seen by Provider: 11/08/19 17:07 Medical Evaluation: Allergies Allergy/AdvReac Type Severity Reaction Status Date / Time Penicillins Allergy Intermediate Swelling Verified 04/20/19 11:52 ibuprofen AdvReac Verified 04/20/19 11:52 morphine AdvReac Verified 04/20/19 11:52 11/08/19 17:08 Pt c/o: right sided headache radiating to rt ear x 10 days now worsening Pt on brief exam: vss, no acute findings pt ordered for: none pt to proceed to the ED Discharge Disposition - Diagnosis Headache - Referrals - Patient Instructions - Post Discharge Activity
[2019-11-08 17:11] VITALS: TEMP 98.3; BMI 31.9
[2019-11-08] MEDS ORDERED: SODIUM CHLORIDE 1,000 ML IV STA (18:02)
[2019-11-08] MEDS ORDERED: ACETAMINOPHEN 1000 MG/100 ML VIAL (NON FORMULARY) IVPB ONE (18:02)
[2019-11-08] MEDS ORDERED: METOCLOPRAMIDE HCL INJECTION 10 MG/2 ML VIAL IVPB ONE (18:02)
--- NOTE | 2019-11-08 18:12 | PDOC ---
*Physical Exam - Vital Signs Last Vital Signs Temp Pulse Resp BP Pulse Ox 98.3 F 82 19 147/66 97 11/08/19 17:08 11/08/19 17:08 11/08/19 17:08 11/08/19 17:08 11/08/19 17:08 11/08/19 18:10 54 y/o female PMH HTN, HLD, asthma, and anxiety c/o EWING. The headache started 2 weeks ago but was acutely worse last PM and this AM. She states that she felt a dull ache in the RIGHT occipatal region. This pain gradually increased and then included the RIGHT eye and posterior auricular region. Last night 07 Nov 2019, she felt as if a brick hit her head; this pain continued to this AM. She is now only presently feeling a dull ache. She denies light sensitivity. Associated symptom of chills. She denies fever, nausea, vomiting, diarrhea, constipation. She has not been recently ill, she denies sick contacts, she denies recent travel. There is some associated dizziness when intense EWING occurred. She denies light and noise sensitivity. She says she takers her home meds regularly. She is fixated on the idea that she may be having a stroke or a brain tumor. No fam h/o CA. Denies recent wt loss, fevers, night sweats. She denies medication change, vision change, or use of new supplements/herbs Fam hx: HLD in parents, otherwise non-contributory Surg hx: Soc hx: Denies cigarette, recreational drug, etoh, REVIEW OF SYSTEMS CONSTITUTIONAL: Absent: fever, chills, diaphoresis, generalized weakness, malaise, loss of appetite, weight change HEENT: Absent: rhinorrhea, nasal congestion, throat pain, throat swelling, difficulty swallowing, mouth swelling, ear pain, eye pain, visual changes CARDIOVASCULAR: Absent: chest pain, syncope, palpitations, irregular heart rate, lightheadedness , peripheral edema RESPIRATORY: Absent: cough, shortness of breath, dyspnea with exertion, orthopnea, wheezing, stridor, hemoptysis GASTROINTESTINAL: Absent: abdominal pain, abdominal distension, nausea, vomiting, diarrhea, constipation, melena, hematochezia GENITOURINARY: Absent: dysuria, frequency, urgency, hesitancy, hematuria, flank pain, genital pain MUSCULOSKELETAL: Absent: myalgia, arthralgia, joint swelling, back pain, neck pain SKIN: Absent: rash, itching, pallor HEMATOLOGIC/IMMUNOLOGIC: Absent: easy bleeding, easy bruising, lymphadenopathy, frequent infections ENDOCRINE: Absent: unexplained weight gain, unexplained weight loss, heat intolerance, cold intolerance NEUROLOGIC: Absent: headache, focal weakness or paresthesias, dizziness, unsteady gait, seizure, mental status changes, bladder or bowel incontinence PSYCHIATRIC: Absent: anxiety, depression, suicidal or homicidal ideation, hallucinations. GENERAL: AOx3, anxious, in no acute distress HEAD: NCAT EYES: YRIS, EOMI, conjunctiva clear. ENT: Ears normal, nares patent, oropharynx clear without exudates. Moist mucous membranes. NECK: Normal range of motion, supple without lymphadenopathy, JVD, or masses. LUNGS: Diffuse crackles in all lung glover ant+post. No accessory muscle use. HEART: RRR s1 s2 ABDOMEN: Soft, BS present in all 4 quadrants, non-distended, no JVD, MUSCULOSKELETAL: No bony deformities or tenderness. No CVA tenderness. UPPER EXTREMITIES: 2+ pulses, warm, well-perfused. No cyanosis. No clubbing. No peripheral edema. LOWER EXTREMITIES: 2+ pulses, warm, well-perfused. No calf tenderness. No peripheral edema. NEUROLOGICAL: No focal deficits. Cranial nerves II-XII intact. Normal speech. Gait not appreciated. PSYCHIATRIC: Anxious. Cooperative. Good eye contact. Appropriate mood and affect. SKIN: Warm, dry, normal turgor, no rashes or lesions noted, normal capillary refill. # Migraine VS anxiety VS intracranial pathology - CBC, CMP - CT head - 1 L NS bolus - Ofirmev 1 gm once 11/08/19 18:46 Discharge - Discharge Information Clinical Impression/Diagnosis: Headache - Follow up/Referral - Patient Discharge Instructions - Post Discharge Activity
[2019-11-08] MEDS ORDERED: ACETAMINOPHEN INJECTION 100 ML IVPB ONE ×2 (18:24→18:37)
[2019-11-08] MEDS ORDERED: METOCLOPRAMIDE HCL INJECTION 10 MG/2 ML VIAL ONE (18:24)
--- NOTE | 2019-11-08 18:58 | PDOC ---
History of Present Illness - General Chief Complaint: Headache Stated Complaint: HEADACHE Time Seen by Provider: 11/08/19 17:07 Past History - Past Medical History Allergies/Adverse Reactions: Allergies Allergy/AdvReac Type Severity Reaction Status Date / Time Penicillins Allergy Intermediate Swelling Verified 11/08/19 17:11 ibuprofen AdvReac Verified 11/08/19 17:11 morphine AdvReac Verified 11/08/19 17:11 Home Medications: Ambulatory Orders Amlodipine Besylate [Norvasc -] 2.5 mg PO BID 06/24/16 LORazepam [Lorazepam] 0.5 mg PO DAILY 12/11/16 Budesonide/Formeterol Fumarate [SYMBICORT 160/4.5mcg -] 2 inh PO BID 01/26/18 Plecanatide [Trulance] 3 mg PO DAILY 01/26/18 Sertraline HCl [Zoloft -] 50 mg PO DAILY 01/26/18 Methocarbamol [Robaxin -] 500 mg PO BID #14 tablet 01/29/19 Methocarbamol [Robaxin -] 500 mg PO BID #14 tablet 04/20/19 Methylprednisolone [Medrol Dose Mack] 4 mg PO ASDIR #21 tablet 04/20/19 Tamsulosin HCl [Flomax] 0.4 mg PO DAILY #7 cap.er.24h 04/20/19 Asthma: Yes COPD: No Diabetes: No Disorders: (HEMATURIA & FLANK PAIN) HTN: Yes Hypercholesterolemia: Yes Psychiatric Problems: Yes (ANXIETY.) - Surgical History Abdominal Surgery: Yes - Psycho Social/Smoking Cessation Hx Smoking Status: No Smoking History: Never smoked Have you smoked in the past 12 months: No Number of Cigarettes Smoked Daily: 0 Information on smoking cessation initiated: No Hx Alcohol Use: No Drug/Substance Use Hx: No Substance Use Type: None Hx Substance Use Treatment: No *Physical Exam - Vital Signs Last Vital Signs Temp Pulse Resp BP Pulse Ox 98.3 F 82 19 147/66 97 11/08/19 17:08 11/08/19 17:08 11/08/19 17:08 11/08/19 17:08 11/08/19 17:08 54 y/o female PMH HTN, HLD, asthma, and anxiety c/o EWING. The headache started 2 weeks ago but was acutely worse last PM and this AM. She states that she felt a dull ache in the RIGHT occipatal region. This pain gradually increased and then included the RIGHT eye and posterior auricular region. Last night 07 Nov 2019, she felt as if a brick hit her head; this pain continued to this AM. She is now only presently feeling a dull ache. She denies light sensitivity. Associated symptom of chills. She denies fever, nausea, vomiting, diarrhea, constipation. She has not been recently ill, she denies sick contacts, she denies recent travel. There is some associated dizziness when intense EWING occurred. She denies light and noise sensitivity. She says she takers her home meds regularly. She is fixated on the idea that she may be having a stroke or a brain tumor. No fam h/o CA. Denies recent wt loss, fevers, night sweats. She denies medication change, vision change, or use of new supplements/herbs Fam hx: HLD in parents, otherwise non-contributory Surg hx: Soc hx: Denies cigarette, recreational drug, etoh, REVIEW OF SYSTEMS CONSTITUTIONAL: Absent: fever, chills, diaphoresis, generalized weakness, malaise, loss of appetite, weight change HEENT: Absent: rhinorrhea, nasal congestion, throat pain, throat swelling, difficulty swallowing, mouth swelling, ear pain, eye pain, visual changes CARDIOVASCULAR: Absent: chest pain, syncope, palpitations, irregular heart rate, lightheadedness , peripheral edema RESPIRATORY: Absent: cough, shortness of breath, dyspnea with exertion, orthopnea, wheezing, stridor, hemoptysis GASTROINTESTINAL: Absent: abdominal pain, abdominal distension, nausea, vomiting, diarrhea, constipation, melena, hematochezia GENITOURINARY: Absent: dysuria, frequency, urgency, hesitancy, hematuria, flank pain, genital pain MUSCULOSKELETAL: Absent: myalgia, arthralgia, joint swelling, back pain, neck pain SKIN: Absent: rash, itching, pallor HEMATOLOGIC/IMMUNOLOGIC: Absent: easy bleeding, easy bruising, lymphadenopathy, frequent infections ENDOCRINE: Absent: unexplained weight gain, unexplained weight loss, heat intolerance, cold intolerance NEUROLOGIC: Absent: headache, focal weakness or paresthesias, dizziness, unsteady gait, seizure, mental status changes, bladder or bowel incontinence PSYCHIATRIC: Absent: anxiety, depression, suicidal or homicidal ideation, hallucinations. GENERAL: AOx3, anxious, in no acute distress HEAD: NCAT EYES: YRIS, EOMI, conjunctiva clear. ENT: Ears normal, nares patent, oropharynx clear without exudates. Moist mucous membranes. NECK: Normal range of motion, supple without lymphadenopathy, JVD, or masses. LUNGS: Diffuse crackles in all lung glover ant+post. No accessory muscle use. HEART: RRR s1 s2 ABDOMEN: Soft, BS present in all 4 quadrants, non-distended, no JVD, MUSCULOSKELETAL: No bony deformities or tenderness. No CVA tenderness. UPPER EXTREMITIES: 2+ pulses, warm, well-perfused. No cyanosis. No clubbing. No peripheral edema. LOWER EXTREMITIES: 2+ pulses, warm, well-perfused. No calf tenderness. No peripheral edema. NEUROLOGICAL: No focal deficits. Cranial nerves II-XII intact. Normal speech. Gait not appreciated. PSYCHIATRIC: Anxious. Cooperative. Good eye contact. Appropriate mood and affect. SKIN: Warm, dry, normal turgor, no rashes or lesions noted, normal capillary refill. # Migraine VS anxiety VS intracranial pathology - CBC, CMP - CT head - 1 L NS bolus - Ofirmev 1 gm once ED Treatment Course - LABORATORY CBC & Chemistry Diagram: 11/08/19 18:15 11/08/19 18:15 - Medications Given in the ED: ED Medications Discontinued Medications Generic Name Dose Route Start Last Admin Trade Name Vida PRN Reason Stop Dose Admin Acetaminophen 1,000 mg 11/08/19 18:02 11/08/19 18:42 Ofirmev Injection - IVPB 11/08/19 18:03 1,000 mg ONCE ONE Administration Metoclopramide HCl 10 mg 11/08/19 18:02 11/08/19 18:42 Reglan Injection - IVPB 11/08/19 18:03 10 mg ONCE ONE Administration Discharge - Discharge Information Problems reviewed: Yes Clinical Impression/Diagnosis: Headache Qualifiers: Headache type: unspecified Headache chronicity pattern: unspecified pattern Intractability: not intractable Qualified Code(s): R51 - Headache Condition: Stable Disposition: HOME - Follow up/Referral Referrals: [facility] [place] [facility] [place] [Provider Group] - Patient Discharge Instructions Patient Printed Discharge Instructions: DI for Headache Additional Instructions: You were seen in the Emergency Department for evaluation of a headache. Your labs and imaging were unremarkable. Review the handout provided at discharge. Follow up with your primary care provider within a week. Return to the Emergency Department if you develop fevers, chest pain, trouble breathing, worsening pain, change in sensation, worsening symptoms, or any new/ concerning symptoms. - Post Discharge Activity Work/Back to School Note: Back to Work
--- NOTE | 2019-11-08 19:00 | PDOC ---
Documentation entered by Nora Bhardwaj SCRIBE, acting as scribe for Susan Cosby MD. Susan Cosby MD: This documentation has been prepared by the premaibmelita, Nora Bhardwaj SCRIBE, under my direction and personally reviewed by me in its entirety. I confirm that the documentation accurately reflects all work, treatment, procedures, and medical decision making performed by me. Attending Attestation - Resident Resident Name: Avila Davison - ED Attending Attestation I have performed the following: I have examined & evaluated the patient, The case was reviewed & discussed with the resident, I agree w/resident's findings & plan, Exceptions are as noted - HPI HPI: 11/08/19 18:41 The patient is a 54-year-old female with a past medical history significant for HTN, HLD, asthma, and anxiety who presents to the emergency department with a headache. The patient reports the headache is to the back of the head, associated with chills. Denies vomiting. Denies taking any medication for the symptoms. Denies prior similar pain. - Physicial Exam PE: 11/08/19 18:58 Alert conversant 54-year-old female states she has had a sudden headache but no vomiting no blurry vision no ataxia slurred speech or extremity weakness Head as normocephalic atraumatic Neck is supple CVS is regular rate and rhythm S1-S2 Lungs are clear to auscultation Abdomen is nontender Skin warm and dry Neuro patient is alert and oriented x3 motor strength 5 out of 5 bilaterally ambulating with ease in the emergency department - Medical Decision Making 11/08/19 19:00 Patient has no gross focal neuro deficits, no fever, no neck pain no vomiting Plan CAT scan of the head 11/08/19 19:21 CAT scan of the head did not show any acute intracranial pathology, no calvarium fracture, no infarct, no bleed no mass 11/08/19 19:36 CBC there is no leukocytosis or anemia Chemistries were reviewed glucose is equal to 130 otherwise her chemistries are unremarkable 11/08/19 20:17 imp headache d/c home
--- NOTE | 2019-11-08 19:01 | PDOC ---
*Physical Exam - Vital Signs Last Vital Signs Temp Pulse Resp BP Pulse Ox 98.3 F 82 19 147/66 97 11/08/19 17:08 11/08/19 17:08 11/08/19 17:08 11/08/19 17:08 11/08/19 17:08 ED Treatment Course - LABORATORY CBC & Chemistry Diagram: 11/08/19 18:15 11/08/19 18:15 - RADIOLOGY Radiograph Interpretation: CT/HEAD CT WITHOUT CONTRAST No intraparenchymal hemorrhage is seen. There is no CT evidence of acute subarachnoid hemorrhage. No extra-axial fluid collection is noted. There is no obvious mass lesion or infarct. No definite abnormal intracranial attenuation is seen. The ventricles and cisterns appear unremarkable. No calvarial defect is noted. The partially imaged paranasal sinuses demonstrate no opacification. Impression: No CT evidence of acute intracranial pathology. The intracranial structures demonstrate no definite interval change in comparison to a CT exam of 03/07/2017. Interval resolution of fluid accumulation is noted within the left sphenoid sinus. 11/08/19 19:02 - Medications Given in the ED: ED Medications Discontinued Medications Generic Name Dose Route Start Last Admin Trade Name Freq PRN Reason Stop Dose Admin Acetaminophen 1,000 mg 11/08/19 18:02 11/08/19 18:42 Ofirmev Injection - IVPB 11/08/19 18:03 1,000 mg ONCE ONE Administration Metoclopramide HCl 10 mg 11/08/19 18:02 11/08/19 18:42 Reglan Injection - IVPB 11/08/19 18:03 10 mg ONCE ONE Administration Medical Decision Making - Medical Decision Making Pt received as sign out Pt pending CT read and labs Pt reports feeling improved s/p meds Will reassess 11/08/19 18:56 CT head w/o acute pathology 11/08/19 19:03 No leukocytosis No anemia Lytes unremarkable No VALENTIN LFTs unremarkable Pt feels improved at this time Plan for D/C w/ PCP f/u Discharge instructions and return precautions given Patient in agreement and verbalized understanding Dispo: Home 11/08/19 19:46 Discharge - Discharge Information Problems reviewed: Yes Clinical Impression/Diagnosis: Headache Qualifiers: Headache type: unspecified Headache chronicity pattern: unspecified pattern Intractability: not intractable Qualified Code(s): R51 - Headache Condition: Stable Disposition: HOME - Admission No - Follow up/Referral Referrals: [facility] [place] [facility] at [place] [Provider Group] - Patient Discharge Instructions Patient Printed Discharge Instructions: DI for Headache Additional Instructions: You were seen in the Emergency Department for evaluation of a headache. Your labs and imaging were unremarkable. Review the handout provided at discharge. Follow up with your primary care provider within a week. Return to the Emergency Department if you develop fevers, chest pain, trouble breathing, worsening pain, change in sensation, worsening symptoms, or any new/ concerning symptoms. - Post Discharge Activity Work/Back to School Note: Back to Work
[2019-11-08 19:05] LABS: BASO % 3.3 % (0-2.0); EOS % 3.1 % (0-4.5); HEMATOCRIT 36.1 % (32.4-45.2); HEMOGLOBIN 11.2 GM/dL (10.7-15.3); LYMPH % 40.5 % (8-40); MEAN CELL VOLUME 62.4 fl (80-96); MEAN PLT VOLUME 9.9 fl (7.5-11.1); MONO % 6.1 % (3.8-10.2); PLATELET COUNT 287 K/MM3 (134-434); RBC 5.78 M/mm3 (3.60-5.2); RDW 15.7 % (11.6-15.6); WHITE BLOOD COUNT 7.4 K/mm3 (4.0-10.0)
[2019-11-08 19:14] LABS: MCH 19.3 pg (25.7-33.7)
[2019-11-08 19:32] LABS: BILIRUBIN,TOTAL 0.4 mg/dL (0.2-1); BLOOD UREA NITROGEN 18.1 mg/dL (7-18); CALCIUM 9.1 mg/dL (8.5-10.1); CREATININE 0.8 mg/dL (0.55-1.3); TOT PROT 7.1 g/dl (6.4-8.2)
[2019-11-08 20:03] LABS: ANISOCYTOSIS 3+; MACROCYTOSIS 0; OVALOCYTE 1+; PLATELET ESTIMATE NORMAL; TARGET CELLS 1+
[2019-11-08 21:40] VITALS: BP 142/82; PULSE 80
== END 2019-11-08 21:40 | disposition home or self-care (01) ==
LOC: JER 16:56
PROC: 3E033NZ Introduction of Analgesics, Hypnotics, Sedatives into Peripheral Vein, Percutaneous Approach (ICD-10-PCS; principal; 2019-11-08)
PROC: 3E033GC Introduction of Other Therapeutic Substance into Peripheral Vein, Percutaneous Approach (ICD-10-PCS; 2019-11-08)
DX: R51 Headache (principal); I10 Essential (primary) hypertension; F41.9 Anxiety disorder, unspecified; J45.909 Unspecified asthma, uncomplicated; Z88.0 Allergy status to penicillin; Z88.5 Allergy status to narcotic agent; Z88.6 Allergy status to analgesic agent
CPT/HCPCS: 36415; 70450-TC; 80053; 85025; 96374; 96375; 99285-25; J0131; J7030

== ENCOUNTER 2020-04-10 04:44 | Day surgery (SDC) | payer OTHER ==
[2020-04-09 12:44] VITALS: BMI 29.8
[2020-04-10] MEDS ORDERED: MIDAZOLAM HCL 2 MG/2 ML SINGLE DOSE VIAL ONE (11:50)
[2020-04-10] MEDS ORDERED: PROPOFOL 20 ML ONE (11:50)
[2020-04-10] MEDS ORDERED: LIDOCAINE HCL/PF 2% SDV 5ML VIAL ONE (11:51)
[2020-04-10 12:37] VITALS: PULSE 70
[2020-04-10] MEDS ORDERED: ONDANSETRON 4 MG/2 ML VIAL ONE (13:52)
[2020-04-10] MEDS ORDERED: ONDANSETRON 4 MG/2 ML VIAL IVPUSH ONE (13:55)
[2020-04-10 15:37] VITALS: BP 125/73; TEMP 97.8
--- NOTE | 2020-04-16 15:08 | OP ---
DATE OF OPERATION: 04/10/2020 SURGEON: Brody Gonzalez MD PREOPERATIVE DIAGNOSIS: Right ureteropelvic junction stone with right hydronephrosis. POSTOPERATIVE DIAGNOSIS: Right ureteropelvic junction stone with right hydronephrosis. OPERATIVE PROCEDURE: Right extracorporeal shock wave lithotripsy. ANESTHESIA: General. DESCRIPTION OF PROCEDURE: Under above-stated anesthesia patient was prepped and draped in the usual sterile manner. She was placed in the supine position. After proper positioning by the ESWL tech, the patient underwent extracorporeal lithotripsy of her right UPJ stone. She had a benign and uneventful operative course. There was good fragmentation of the stone. She received 2500 shocks, tolerated the procedure well and returned to the OR in good condition. BRODY GONZALEZ M.D. ELROY/[id number]
== END 2020-04-10 15:30 | disposition home or self-care (01) ==
LOC: JASU-SURG 04:44
PROVIDERS: ATTEND Urology
PROC: 0TF3XZZ Fragmentation in Right Kidney Pelvis, External Approach (ICD-10-PCS; principal; 2020-04-10 12:00)
DX: N13.0 Hydronephrosis with ureteropelvic junction obstruction (principal); N20.0 Calculus of kidney

== ENCOUNTER 2021-04-03 09:02 | Emergency (ER) | payer OTHER ==
[2021-04-03 09:09] VITALS: BP 118/65; PULSE 79; TEMP 98.3; BMI 41.3
[2021-04-03] MEDS ORDERED: SODIUM CHLORIDE 1,000 ML IV STA (09:57)
[2021-04-03] MEDS ORDERED: ACETAMINOPHEN 1000 MG/100 ML VIAL (NON FORMULARY) IVPB ONE (09:57)
[2021-04-03] MEDS ORDERED: ONDANSETRON 4 MG/2 ML VIAL IVPUSH ONE (09:57)
[2021-04-03] MEDS ORDERED: ONDANSETRON 4 MG/2 ML VIAL ONE (10:19)
[2021-04-03] MEDS ORDERED: ACETAMINOPHEN INJECTION 100 ML IVPB ONE (10:19)
[2021-04-03 11:30] LABS: BASO % 0.7 % (0-2.0); EOS % 2.7 % (0-4.5); HEMATOCRIT 36.3 % (32.4-45.2); HEMOGLOBIN 11.3 GM/dL (10.7-15.3); LYMPH % 34.7 % (8-40); MEAN CELL VOLUME 62.3 fl (80-96); MEAN PLT VOLUME 9.3 fl (7.5-11.1); MONO % 6.2 % (3.8-10.2); NEUT % 55.7 % (42.8-82.8); PLATELET COUNT 305 10^3/uL (134-434); RBC 5.84 M/mm3 (3.60-5.2); RDW 16.1 % (11.6-15.6); WHITE BLOOD COUNT 6.2 K/mm3 (4.0-10.0)
[2021-04-03 11:31] LABS: MCH 19.3 pg (25.7-33.7)
[2021-04-03 11:37] LABS: INR 0.81 (0.83-1.09); PROTHROMBIN TIME (PATIENT) 9.9 SEC (9.7-13.0)
[2021-04-03 11:51] LABS: URINE APPEARANCE CLEAR; URINE BILIRUBIN NEGATIVE (NEGATIVE); URINE COLOR YELLOW; URINE GLUCOSE (UA) NEGATIVE (NEGATIVE); URINE KETONE TRACE (NEGATIVE); URINE LEUK ESTERASE NEGATIVE (NEGATIVE); URINE NITRITE NEGATIVE (NEGATIVE); URINE PROTEIN NEGATIVE (NEGATIVE); URINE UROBILINOGEN 0.2 mg/dL (0.2-1.0)
[2021-04-03 12:00] LABS: CALCIUM 9.2 mg/dL (8.5-10.1)
[2021-04-03 12:02] LABS: BLOOD UREA NITROGEN 10.5 mg/dL (7-18)
[2021-04-03 12:06] LABS: BILIRUBIN,TOTAL 0.4 mg/dL (0.2-1); CREATININE 0.7 mg/dL (0.55-1.3); TOT PROT 7.1 g/dl (6.4-8.2)
== END 2021-04-03 14:20 | disposition home or self-care (01) ==
LOC: JER 09:02
PROC: 3E0333Z Introduction of Anti-inflammatory into Peripheral Vein, Percutaneous Approach (ICD-10-PCS; principal; 2021-04-03)
PROC: 3E033GC Introduction of Other Therapeutic Substance into Peripheral Vein, Percutaneous Approach (ICD-10-PCS; 2021-04-03)
PROC: 3E0337Z Introduction of Electrolytic and Water Balance Substance into Peripheral Vein, Percutaneous Approach (ICD-10-PCS; 2021-04-03)
DX: R10.31 Right lower quadrant pain (principal)
CPT/HCPCS: 36415; 74176-TC; 80053; 81003; 85025; 85610; 87086; 93005; 93010; 99285-25; J0131

== ENCOUNTER 2021-08-28 17:57 | Emergency (ER) | payer OTHER ==
[2021-08-28 18:35] VITALS: TEMP 97.6; BMI 41.0
[2021-08-28] MEDS ORDERED: ACETAMINOPHEN 1000 MG/100 ML VIAL IVPB ONE (20:29)
[2021-08-28] MEDS ORDERED: LACTATED RINGERS SOLUTION 1000 ML INFUS.BAG IV ONE (20:29)
[2021-08-28] MEDS ORDERED: ACETAMINOPHEN INJECTION 100 ML IVPB ONE (21:45)
[2021-08-28 21:50] LABS: HEMATOCRIT 33.7 % (32.4-45.2); HEMOGLOBIN 10.7 GM/dL (10.7-15.3); MCHC 31.6 g/dl (32.0-36.0); MEAN CELL VOLUME 62.4 fl (80-96); RBC 5.41 M/mm3 (3.60-5.2); WHITE BLOOD COUNT 7.2 K/mm3 (4.0-10.0)
[2021-08-28 21:51] LABS: BASO % 0.7 % (0-2.0); EOS % 1.9 % (0-4.5); LYMPH % 40.6 % (8-40); MEAN PLT VOLUME 9.1 fl (7.5-11.1); NEUT % 50.8 % (42.8-82.8); PLATELET COUNT 299 10^3/uL (134-434); RDW 15.4 % (11.6-15.6)
[2021-08-28 21:56] LABS: MCH 19.7 pg (25.7-33.7)
[2021-08-28 22:09] LABS: CHLORIDE 109 mmol/L (98-107); SODIUM 145 mmol/L (136-145)
[2021-08-28 22:12] LABS: ALBUMIN 3.8 g/dl (3.4-5.0); ANION GAP 6 MMOL/L (8-16); BLOOD UREA NITROGEN 16.2 mg/dL (7-18); CO2 30 mmol/L (21-32); GLUCOSE,RANDOM 86 mg/dL (74-106)
[2021-08-28 22:15] LABS: SGOT/AST 17 U/L (15-37); SGPT/ALT 19 U/L (13-61)
[2021-08-28 22:17] LABS: BILIRUBIN,TOTAL 0.3 mg/dL (0.2-1)
[2021-08-28 22:18] LABS: ALK PHOS 115 U/L (45-117)
[2021-08-28 22:38] LABS: URINE APPEARANCE CLEAR; URINE BILIRUBIN NEGATIVE (NEGATIVE); URINE COLOR YELLOW; URINE GLUCOSE (UA) NEGATIVE (NEGATIVE); URINE KETONE NEGATIVE (NEGATIVE); URINE LEUK ESTERASE NEGATIVE (NEGATIVE); URINE NITRITE NEGATIVE (NEGATIVE); URINE PROTEIN NEGATIVE (NEGATIVE); URINE UROBILINOGEN 0.2 mg/dL (0.2-1.0)
[2021-08-28 23:09] LABS: INR 0.96 (0.83-1.09); PROTHROMBIN TIME (PATIENT) 10.7 SEC (9.7-13.0)
[2021-08-28 23:13] LABS: ACTIVATED PTT 27.6 SECONDS (25.2-36.5)
[2021-08-28 23:17] LABS: ANISOCYTOSIS 2+; MACROCYTOSIS 0; PLATELET ESTIMATE NORMAL
[2021-08-29 02:38] VITALS: BP 113/78; PULSE 69
== END 2021-08-29 02:39 | disposition home or self-care (01) ==
LOC: JER 17:57
PROC: 3E0333Z Introduction of Anti-inflammatory into Peripheral Vein, Percutaneous Approach (ICD-10-PCS; principal; 2021-08-28)
DX: R10.9 Unspecified abdominal pain (principal)
CPT/HCPCS: 36415; 71046-TC-FY; 74177-TC; 80053; 81003; 82272; 83605; 84484; 85025; 85610; 85730; 87086; 93005; 93010; 99285-25; C9803; J0131; U0003; U0005

== ENCOUNTER 2021-10-23 16:22 | Emergency (ER) | payer OTHER ==
[2021-10-23 16:35] VITALS: BP 141/82; PULSE 80; TEMP 98; BMI 30.2
[2021-10-23] MEDS ORDERED: ACETAMINOPHEN 1000 MG/100 ML BAG IVPB ONE (17:09)
[2021-10-23] MEDS ORDERED: SODIUM CHLORIDE 1,000 ML IV STA (17:10)
[2021-10-23 18:14] LABS: URINE APPEARANCE CLEAR; URINE BILIRUBIN NEGATIVE (NEGATIVE); URINE COLOR YELLOW; URINE GLUCOSE (UA) NEGATIVE (NEGATIVE); URINE KETONE TRACE (NEGATIVE); URINE LEUK ESTERASE NEGATIVE (NEGATIVE); URINE NITRITE NEGATIVE (NEGATIVE); URINE PROTEIN NEGATIVE (NEGATIVE); URINE UROBILINOGEN 0.2 mg/dL (0.2-1.0)
[2021-10-23 19:08] LABS: BASO % 1.4 % (0-2.0); EOS % 1.2 % (0-4.5); HEMATOCRIT 33.1 % (32.4-45.2); HEMOGLOBIN 10.4 GM/dL (10.7-15.3); LYMPH % 44.3 % (8-40); MCHC 31.4 g/dl (32.0-36.0); MEAN CELL VOLUME 61.8 fl (80-96); MONO % 6.4 % (3.8-10.2); NEUT % 46.7 % (42.8-82.8); PLATELET COUNT 285 10^3/uL (134-434); RBC 5.36 M/mm3 (3.60-5.2); RDW 15.1 % (11.6-15.6); WHITE BLOOD COUNT 6.2 K/mm3 (4.0-10.0)
[2021-10-23 19:12] LABS: MCH 19.4 pg (25.7-33.7)
[2021-10-23 19:30] LABS: CALCIUM 9.3 mg/dL (8.5-10.1)
[2021-10-23 19:31] LABS: ALBUMIN 3.9 g/dl (3.4-5.0); BLOOD UREA NITROGEN 13.9 mg/dL (7-18)
[2021-10-23 19:34] LABS: CREATININE 0.7 mg/dL (0.55-1.3)
[2021-10-23 19:36] LABS: BILIRUBIN,TOTAL 0.5 mg/dL (0.2-1); TOT PROT 7.1 g/dl (6.4-8.2)
[2021-10-23 19:47] LABS: ANISOCYTOSIS 3+; MACROCYTOSIS 0; PLATELET ESTIMATE NORMAL; ROULEAU 1+; TARGET CELLS 1+; TEAR DROP CELLS 1+
== END 2021-10-23 19:53 | disposition home or self-care (01) ==
LOC: JER 16:22
PROC: 3E033NZ Introduction of Analgesics, Hypnotics, Sedatives into Peripheral Vein, Percutaneous Approach (ICD-10-PCS; principal; 2021-10-23)
PROC: 3E0337Z Introduction of Electrolytic and Water Balance Substance into Peripheral Vein, Percutaneous Approach (ICD-10-PCS; 2021-10-23)
DX: R10.9 Unspecified abdominal pain (principal)
CPT/HCPCS: 36415; 74176-TC; 80053; 81003; 85025; 87086; 96361; 96374; 99285-25

== ENCOUNTER 2022-03-19 05:57 | Emergency (ER) | payer OTHER ==
[2022-03-19 06:35] VITALS: TEMP 98.5; BMI 33.0
[2022-03-19] MEDS ORDERED: SODIUM CHLORIDE 1,000 ML IV STA (08:03)
[2022-03-19] MEDS ORDERED: ONDANSETRON 4 MG/2 ML VIAL IVPUSH ONE (08:04)
[2022-03-19] MEDS ORDERED: ACETAMINOPHEN 1000 MG/100 ML BAG IVPB ONE (08:04)
[2022-03-19 08:35] LABS: BASO % 0.5 % (0-2.0); EOS % 1.1 % (0-4.5); HEMATOCRIT 35.4 % (32.4-45.2); HEMOGLOBIN 11.2 GM/dL (10.7-15.3); LYMPH % 23.3 % (8-40); MCHC 31.7 g/dl (32.0-36.0); MEAN CELL VOLUME 61.8 fl (80-96); MEAN PLT VOLUME 8.5 fl (7.5-11.1); MONO % 5.8 % (3.8-10.2); NEUT % 69.3 % (42.8-82.8); PLATELET COUNT 295 10^3/uL (134-434); RBC 5.72 M/mm3 (3.60-5.2); RDW 15.5 % (11.6-15.6); WHITE BLOOD COUNT 6.2 K/mm3 (4.0-10.0)
[2022-03-19] MEDS ORDERED: ACETAMINOPHEN INJECTION 100 ML IVPB ONE (08:36)
[2022-03-19] MEDS ORDERED: ONDANSETRON 4 MG/2 ML VIAL ONE (08:36)
[2022-03-19 08:39] LABS: MCH 19.6 pg (25.7-33.7)
[2022-03-19 08:59] LABS: CHLORIDE 108 mmol/L (98-107); SODIUM 139 mmol/L (136-145)
[2022-03-19 09:01] LABS: ALBUMIN 3.7 g/dl (3.4-5.0); CO2 27 mmol/L (21-32); GLUCOSE,RANDOM 91 mg/dL (74-106); LIPASE 138 U/L (73-393)
[2022-03-19 09:02] LABS: BLOOD UREA NITROGEN 10.2 mg/dL (7-18)
[2022-03-19 09:04] LABS: CREATININE 0.6 mg/dL (0.55-1.3); SGOT/AST 58 U/L (15-37); SGPT/ALT 25 U/L (13-61)
[2022-03-19 09:06] LABS: BILIRUBIN,TOTAL 0.6 mg/dL (0.2-1); TOT PROT 7.4 g/dl (6.4-8.2)
[2022-03-19 09:07] LABS: ALK PHOS 104 U/L (45-117)
[2022-03-19 09:20] LABS: ANISOCYTOSIS 2+; MACROCYTOSIS 0
[2022-03-19 09:21] LABS: ANION GAP 4 MMOL/L (8-16)
[2022-03-19 10:17] LABS: PH,URINE 7.5 (5.0-8.0); URINE APPEARANCE CLEAR; URINE BILIRUBIN NEGATIVE (NEGATIVE); URINE COLOR YELLOW; URINE GLUCOSE (UA) NEGATIVE (NEGATIVE); URINE KETONE NEGATIVE (NEGATIVE); URINE LEUK ESTERASE NEGATIVE (NEGATIVE); URINE NITRITE NEGATIVE (NEGATIVE); URINE PROTEIN NEGATIVE (NEGATIVE); URINE UROBILINOGEN 0.2 mg/dL (0.2-1.0)
[2022-03-19 11:11] VITALS: BP 132/70; PULSE 84
== END 2022-03-19 11:11 | disposition home or self-care (01) ==
LOC: JER 05:57
PROC: 3E033GC Introduction of Other Therapeutic Substance into Peripheral Vein, Percutaneous Approach (ICD-10-PCS; principal; 2022-03-19)
DX: N23 Unspecified renal colic (principal); R10.9 Unspecified abdominal pain
CPT/HCPCS: 36415; 74176-TC; 80053; 81003; 83690; 84132; 85025; 87086; 99285-25

== ENCOUNTER 2022-12-02 05:05 | Day surgery (SDC) | payer OTHER ==
[2022-11-28 10:27] VITALS: BMI 33.6
[2022-12-02] MEDS ORDERED: MIDAZOLAM HCL 2 MG/2 ML SINGLE DOSE VIAL ONE (13:17)
[2022-12-02] MEDS ORDERED: ceFAZolin SODIUM 1 GM VIAL IVPB ONE (13:30)
[2022-12-02 15:29] VITALS: RESP 18
[2022-12-02 17:20] VITALS: BP 126/70; PULSE 68; TEMP 98
== END 2022-12-02 16:45 | disposition home or self-care (01) ==
LOC: JASU-SURG 05:05
PROVIDERS: ATTEND Urology
PROC: 0TF3XZZ Fragmentation in Right Kidney Pelvis, External Approach (ICD-10-PCS; principal; 2022-12-02 12:00)
DX: N20.0 Calculus of kidney (principal)

== ENCOUNTER 2023-04-08 22:04 | Emergency (ER) | payer OTHER ==
[2023-04-08 22:15] VITALS: BMI 34.5
[2023-04-08] MEDS ORDERED: LACTATED RINGERS SOLUTION 1000 ML INFUS.BAG IV ONE (23:07)
[2023-04-08] MEDS ORDERED: ACETAMINOPHEN 1000 MG/100 ML BAG IVPB ONE (23:07)
[2023-04-08] MEDS ORDERED: METOCLOPRAMIDE HCL INJECTION 10 MG/2 ML VIAL IVPUSH ONE (23:07)
[2023-04-08] MEDS ORDERED: METOCLOPRAMIDE HCL INJECTION 10 MG/2 ML VIAL ONE (23:15)
[2023-04-08 23:49] LABS: BASO % 1.2 % (0-2.0); HEMATOCRIT 34.8 % (32.4-45.2); MCHC 31.6 g/dl (32.0-36.0); MEAN CELL VOLUME 60.2 fl (80-96); MEAN PLT VOLUME 8.7 fl (7.5-11.1); NEUT % 83.8 % (42.8-82.8); PLATELET COUNT 318 10^3/uL (134-434); RBC 5.78 M/mm3 (3.60-5.2); RDW 15.7 % (11.6-15.6); WHITE BLOOD COUNT 5.3 K/mm3 (4.0-10.0)
[2023-04-09 00:10] LABS: INR 0.89 (0.83-1.09); PROTHROMBIN TIME (PATIENT) 10.3 SEC (9.7-13.0)
[2023-04-09 00:13] LABS: ACTIVATED PTT 28.6 SECONDS (25.2-36.5)
[2023-04-09] MEDS ORDERED: ACETAMINOPHEN INJECTION 100 ML IVPB ONE (00:14)
[2023-04-09 00:21] LABS: POTASSIUM 4.4 mmol/L (3.5-5.1)
[2023-04-09 00:23] LABS: ALBUMIN 3.7 g/dl (3.4-5.0); CALCIUM 8.8 mg/dL (8.5-10.1); MAGNESIUM 2.4 mg/dL (1.8-2.4)
[2023-04-09 00:28] LABS: BILIRUBIN,TOTAL 0.2 mg/dL (0.2-1)
[2023-04-09 00:57] VITALS: BP 119/56; PULSE 78; RESP 16; TEMP 97.1
[2023-04-09 01:29] LABS: ANISOCYTOSIS 3+; MACROCYTOSIS 1+; ROULEAU 2+
== END 2023-04-09 01:15 | disposition home or self-care (01) ==
LOC: JER 22:04
PROC: 3E033GC Introduction of Other Therapeutic Substance into Peripheral Vein, Percutaneous Approach (ICD-10-PCS; principal; 2023-04-08)
PROC: 3E033NZ Introduction of Analgesics, Hypnotics, Sedatives into Peripheral Vein, Percutaneous Approach (ICD-10-PCS; 2023-04-09)
DX: I10 Essential (primary) hypertension (principal); R51.9 Headache, unspecified; M54.50 Low back pain, unspecified; H53.71 Glare sensitivity; F40.298 Other specified phobia; R00.2 Palpitations
CPT/HCPCS: 36415; 80053; 83735; 84484; 85025; 85610; 85730; 93005; 93010; 99284-25

== ENCOUNTER 2023-05-25 05:00 | Day surgery (SDC) | payer OTHER ==
[2023-05-20 17:01] VITALS: BMI 33.8
[2023-05-25] MEDS ORDERED: DEXAMETHASONE SOD PHOSPHATE 10 MG/1 ML VIAL ONE ×2 (11:35→11:52)
[2023-05-25] MEDS ORDERED: LIDOCAINE HCL/PF 1% SDV 5ML VIAL ONE (11:35)
[2023-05-25 12:57] VITALS: RESP 18
[2023-05-25] MEDS ORDERED: PROPOFOL 20 ML ONE (14:50)
[2023-05-25] MEDS ORDERED: MIDAZOLAM HCL 2 MG/2 ML SINGLE DOSE VIAL ONE ×2 (14:50→15:03)
[2023-05-25] MEDS ORDERED: IOHEXOL 180 MG/1 ML ML IJ ONE (15:11)
[2023-05-25] MEDS ORDERED: LIDOCAINE HCL 1% PRESERVATIVE FREE - 30ML VIAL IJ ONE (15:11)
[2023-05-25] MEDS ORDERED: BUPIVACAINE HCL/PF 0.25% (2.5MG/ML) 10 ML VIAL IJ ONE (15:11)
[2023-05-25 19:23] VITALS: BP 129/72; PULSE 67; TEMP 98
== END 2023-05-25 17:15 | disposition home or self-care (01) ==
LOC: JASU-SURG 05:00
PROVIDERS: ATTEND Physical Medicine & Rehabilitation
PROC: 3E0R3BZ Introduction of Anesthetic Agent into Spinal Canal, Percutaneous Approach (ICD-10-PCS; 2023-05-25)
PROC: 3E0R33Z Introduction of Anti-inflammatory into Spinal Canal, Percutaneous Approach (ICD-10-PCS; principal; 2023-05-25 14:30)
DX: M54.16 Radiculopathy, lumbar region (principal)
CPT/HCPCS: 76000-TC-FY; J1100

== ENCOUNTER 2023-07-28 10:44 | Emergency (ER) | payer OTHER ==
[2023-07-28 10:57] VITALS: BP 109/69; PULSE 81; RESP 18; TEMP 98; BMI 29.2
[2023-07-28] MEDS ORDERED: ACETAMINOPHEN 325 MG TABLET (FP) PO ONE (11:46)
[2023-07-28] MEDS ORDERED: guaiFENesin 200 MG/10 ML 10 ML UNIT-DOSE CUPS PO ONE (11:46)
[2023-07-28] MEDS ORDERED: ACETAMINOPHEN 325 MG TABLET (FP) ONE (12:04)
[2023-07-28] MEDS ORDERED: guaiFENesin 200 MG/10 ML 10 ML UNIT-DOSE CUPS ONE (12:04)
== END 2023-07-28 14:19 | disposition home or self-care (01) ==
LOC: JERFT 10:44
DX: R05.9 Cough, unspecified (principal); R09.81 Nasal congestion; R51.9 Headache, unspecified; R50.9 Fever, unspecified; J02.9 Acute pharyngitis, unspecified; R07.0 Pain in throat; R13.10 Dysphagia, unspecified; M54.2 Cervicalgia; J06.9 Acute upper respiratory infection, unspecified; Z20.822 Contact with and (suspected) exposure to COVID-19
CPT/HCPCS: 0241U-QW; 70360-TC-FY; 87651; 99284-25

== ENCOUNTER 2023-09-28 11:39 | Emergency (ER) | payer OTHER ==
[2023-09-28 12:33] VITALS: BP 126/66; PULSE 103; RESP 18; TEMP 98.6; BMI 34.7
[2023-09-28] MEDS ORDERED: METOCLOPRAMIDE HCL INJECTION 10 MG/2 ML VIAL IVPUSH ONE (13:42)
[2023-09-28] MEDS ORDERED: METOCLOPRAMIDE HCL INJECTION 10 MG/2 ML VIAL ONE (14:18)
== END 2023-09-28 17:18 | disposition home or self-care (01) ==
LOC: JER 11:39 → JERFT 11:39
PROC: 3E033GC Introduction of Other Therapeutic Substance into Peripheral Vein, Percutaneous Approach (ICD-10-PCS; principal; 2023-09-28)
DX: R51.9 Headache, unspecified (principal); M79.662 Pain in left lower leg; M54.9 Dorsalgia, unspecified; H53.71 Glare sensitivity
CPT/HCPCS: 93971-TC; 99284-25

== ENCOUNTER 2024-04-11 04:59 | Day surgery (SDC) | payer OTHER ==
[2024-04-07 16:25] VITALS: BMI 35.3
[2024-04-11 13:30] VITALS: RESP 20; TEMP 97.7
[2024-04-11] MEDS ORDERED: DEXAMETHASONE SOD PHOSPHATE 10 MG/1 ML VIAL ONE (15:39)
[2024-04-11] MEDS ORDERED: PROPOFOL 20 ML ONE (15:45)
[2024-04-11] MEDS ORDERED: MIDAZOLAM HCL 2 MG/2 ML SINGLE DOSE VIAL ONE (15:46)
[2024-04-11] MEDS: DEXAMETHASONE SOD PHOSPHATE 10 MG/1 ML VIAL IVPUSH ONE (15:52)
[2024-04-11] MEDS: BUPIVACAINE HCL/PF 0.25% (2.5MG/ML) 10 ML VIAL IJ ONE (15:52)
[2024-04-11] MEDS: IOHEXOL 180 MG/1 ML ML IJ ONE (15:52)
[2024-04-11] MEDS ORDERED: SODIUM CHLORIDE 0.9% P/F 10 ML VIAL IJ ONE (15:53)
[2024-04-11 16:26] VITALS: PULSE 80
[2024-04-11 18:15] VITALS: BP 120/80
== END 2024-04-11 18:00 | disposition home or self-care (01) ==
LOC: JASU-SURG 04:59
PROVIDERS: ATTEND Physical Medicine & Rehabilitation
PROC: 3E0R3BZ Introduction of Anesthetic Agent into Spinal Canal, Percutaneous Approach (ICD-10-PCS; 2024-04-11)
PROC: 3E0R33Z Introduction of Anti-inflammatory into Spinal Canal, Percutaneous Approach (ICD-10-PCS; principal; 2024-04-11 15:00)
DX: M54.16 Radiculopathy, lumbar region (principal); M54.50 Low back pain, unspecified
CPT/HCPCS: 76000-TC-FY; J1100

== ENCOUNTER 2024-06-25 19:54 | Emergency (ER) | payer OTHER ==
[2024-06-25 20:21] VITALS: BP 108/74; PULSE 90; RESP 18; TEMP 98.4; BMI 36.1
[2024-06-25] MEDS ORDERED: FAMOTIDINE 20 MG TABLET ONE (20:52)
[2024-06-25] MEDS ORDERED: diphenhydrAMINE HCL 25 MG CAPSULE (FP) PO ONE (20:52)
[2024-06-25] MEDS ORDERED: DEXAMETHASONE SOD PHOSPHATE 10 MG/1 ML VIAL ONE (20:52)
[2024-06-25] MEDS: diphenhydrAMINE HCL 25 MG CAPSULE (FP) PO ONE (20:55)
[2024-06-25] MEDS: DEXAMETHASONE SOD PHOSPHATE 10 MG/1 ML VIAL PO ONE (20:56)
[2024-06-25] MEDS: FAMOTIDINE 20 MG TABLET PO ONE (20:56)
== END 2024-06-25 21:53 | disposition home or self-care (01) ==
LOC: JER 19:54
DX: L29.9 Pruritus, unspecified (principal); R21 Rash and other nonspecific skin eruption
CPT/HCPCS: 99283-25; J1100